=== PATIENT | female | born 1960 | race Caucasian/White ===

== ENCOUNTER → 2022-11-27 16:13 | Outpatient (CLI) | payer MEDICARE, SELFPAY ==
[2022-11-27 17:04] LABS: Basophils # 0.1 K/mm3 (0-0.2); Basophils % 0.5 % (0.1-2.0); Eosinophils # 0.2 K/mm3 (0.0-0.4); Eosinophils % 1.4 % (0.1-12.0); Hematocrit 37.8 % (37.0-47.0); Hemoglobin 12.1 g/dL (12.2-16.2); Lymphocytes # 3.3 K/mm3 (0.7-4.5); Lymphocytes % 28.6 % (10-50); Mean Corpuscular HGB Conc 32.2 g/dL (31.8-35.4); Mean Corpuscular Hemoglobin 27.2 pg (27.0-31.2); Mean Corpuscular Volume 84.5 fl (81-99); Mean Platelet Volume 9.2 fl (7.4-10.4); Monocytes # 0.8 K/mm3 (0.1-1.0); Monocytes % 6.6 % (1.7-9.3); Neutrophils # 7.1 K/mm3 (1.8-7.8); Neutrophils % 62.9 % (37.0-80.0); Platelet Count 544 K/mm3 (142-424); Red Blood Count 4.47 M/mm3 (4.20-5.40); Red Cell Distribution Width 15.8 % (11.5-17.5); White Blood Count 11.4 K/mm3 (4.8-10.8)
[2022-11-27 17:09] LABS: Alanine Aminotransferase 20 U/L (12-78); Albumin Level 4.2 g/dl (3.5-5.0); Albumin/Globulin Ratio 1.3 (1.1-1.8); Alkaline Phosphatase 85 U/L (38-126); Anion Gap 12.4 mEq/L (5-15); Aspartate Amino Transferase 26 U/L (14-36); Bilirubin,Total 0.7 mg/dl (0.2-1.3); Blood Urea Nitrogen 18 mg/dl (7-17); Calcium 9.3 mg/dl (8.4-10.2); Carbon Dioxide 31 mmol/L (22.0-30.0); Chloride 100 mmol/L (98-107); Chol/HDL Ratio 3.7 (1-3.5); Cholesterol 151 mg/dl (140-200); Estimated Glomerular Filt Rate 63 ml/min (>60); GFR (African American) 76 ML/MIN (>60); Globulin 3.3 g/dL (1.3-3.2); Glucose 83 mg/dl (74-100); HDL Cholesterol 41 mg/dl (40-60); Potassium 3.4 mmoL/L (3.5-5.1); Sodium 140 mmol/L (136-145); Total Protein,Serum 7.5 g/dl (6.3-8.2); Triglycerides 206 mg/dl (30-150); VLDL Cholesterol 41 mg/dL (0-40)
[2022-11-27 17:20] LABS: Direct LDL Cholesterol 74.92 mg/dL (100-129)
[2022-11-27 17:39] LABS: Thyroid Stimulating Hormone 2.08 uIU/mL (0.465-4.68)
[2022-11-27 18:14] LABS: Hemoglobin A1C 7.2 % (4.0-6.0)
== END ==
PROVIDERS: PCP Family Medicine; Visit Provider Family Medicine
DX: E11.9 Type 2 diabetes mellitus without complications (principal); E78.5 Hyperlipidemia, unspecified; I10 Essential (primary) hypertension; K21.9 Gastro-esophageal reflux disease without esophagitis; K51.90 Ulcerative colitis, unspecified, without complications; Z79.4 Long term (current) use of insulin
CPT/HCPCS: 80053; 80061; 83036; 84436; 84443; 85025

== ENCOUNTER → 2022-12-10 09:47 | Outpatient (CLI) | payer MEDICARE, SELFPAY ==
--- NOTE | 2022-12-10 09:53 | XR_ITS ---
FINAL REPORT CLINICAL HISTORY: left knee pain swelling COMPARISON: None FINDINGS: LEFT KNEE 3 views of the left knee were obtained. There is no acute fracture or dislocation. There is moderate medial compartment joint space narrowing. There is moderate subchondral sclerosis. Soft tissues are unremarkable. IMPRESSION: Moderate medial compartment joint space narrowing and moderate subchondral sclerosis. Reviewed, Interpreted and Dictated by Aldo Kauffman MD Transcribed by Kimberli Castorena Authenticated and [facility]
== END ==
PROVIDERS: PCP Family Medicine; Visit Provider Orthopaedic Surgery
DX: M25.562 Pain in left knee (principal); M25.462 Effusion, left knee
CPT/HCPCS: 73562

== ENCOUNTER → 2023-02-19 15:06 | Outpatient (CLI) | payer MEDICAID, SELFPAY ==
--- NOTE | 2023-02-19 15:06 | MM_ITS ---
PROCEDURE INFORMATION: Exam: MG Bilateral Screening 3D Mammography Exam date and time: 02/19/2023 2:57 PM Age: 62 years old Clinical indication: Screening mammogram TECHNIQUE: Imaging protocol: Bilateral Screening tomosynthesis and 2D mammography including computer-aided detection (CAD) when performed. COMPARISON: 1. MG DMDXUAVL DIG MAMM-DX UNI ADD VIEWS-LT 05/08/2015 1:49 PM 2. MG DMSB DIG MAMM-SCREEN JUSTIN 04/25/2015 10:38 AM 3. MG DMSB DIGITAL MAMM-SCREEN BILATERAL 10/14/2011 4:30 PM 4. MG DMSB DIGITAL MAMM-SCREEN BILATERAL 10/16/2010 4:45 PM FINDINGS: MAMMOGRAPHY: Breast composition: There are scattered areas of fibroglandular density. Mass: None. Architectural distortion: No new or suspicious architectural distortion. Calcifications: No new or suspicious calcifications are present Asymmetric density: No new or suspicious asymmetric density is present Skin thickening: None. Axillary adenopathy: None. IMPRESSION: No mammographic evidence of malignancy. Recommend annual screening mammography unless otherwise clinically indicated. ASSESSMENT: BI-RADS category 1: Negative
== END ==
PROVIDERS: PCP Family Medicine; Visit Provider Family Medicine
DX: Z12.31 Encounter for screening mammogram for malignant neoplasm of breast (principal)
CPT/HCPCS: 77063; 77067

== ENCOUNTER 2023-02-26 11:57 | Emergency (ER) | payer MEDICAID, SELFPAY ==
[2023-02-26] VITALS (7 sets, daily range): BP systolic 135–179; BP diastolic 79–100; PULSE 82–90; RESP 18; TEMP 36.7; O2SAT 92–96; BMI 35.4
--- NOTE | 2023-02-26 12:00 | ECG_ITS ---
APPROVED REPORT Exam: Resting ECG HR:84 bpm ECG Measurements Heart Rate 84 AXES WI 162 P 122 QRSd 94 QRS -6 QT 373 T 72 QTc 414 Conclusion SINUS RHYTHM NONSPECIFIC T-WAVE ABNORMALITY BORDERLINE ECG UNCONFIRMED REPORT Electronically signed by : Amish Nolan MD 02/26/2023 17:11:53
--- NOTE | 2023-02-26 12:15 | XR_ITS ---
FINAL REPORT CLINICAL HISTORY: Shortness of breath FINDINGS: PA and lateral views of the chest are obtained. There is no prior exam for comparison. The cardiac and mediastinal silhouettes are within normal limits. The lungs are clear. There is no pleural effusion, pneumothorax, or acute osseous abnormality. IMPRESSION: No radiographic evidence of acute cardiac or pulmonary disease. Reviewed, Interpreted and Dictated by Naye Reich MD Transcribed by Kimberli Castorena Authenticated and [facility]
[2023-02-26 12:34] LABS: Alanine Aminotransferase 37 U/L (12-78); Albumin Level 4.7 g/dl (3.5-5.0); Albumin/Globulin Ratio 1.3 (1.1-1.8); Alkaline Phosphatase 111 U/L (38-126); Aspartate Amino Transferase 36 U/L (14-36); Bilirubin,Total 0.4 mg/dl (0.2-1.3); Blood Urea Nitrogen 18 mg/dl (7-17); Calcium 9.5 mg/dl (8.4-10.2); Carbon Dioxide 26 mmol/L (22.0-30.0); Chloride 102 mmol/L (98-107); Creatinine Clearance Estimated 72 mL/min (50-200); Estimated Glomerular Filt Rate 45 ml/min (>60); GFR (African American) 55 ML/MIN (>60); Globulin 3.6 g/dL (1.3-3.2); Glucose 234 mg/dl (74-100); Sodium 139 mmol/L (136-145); Total Protein,Serum 8.3 g/dl (6.3-8.2)
--- NOTE | 2023-02-26 12:42 | HMH.EDGENADL ---
Discharge Plan Disposition Patient Disposition: Home, Self-Care Prescriptions Prescriptions: No Action vitamin E (dl, acetate) 180 mg (400 unit) capsule 180 mg PO BID terbinafine HCl 250 mg tablet 250 mg PO DAILY Qty: 30 4RF hydrocodone-acetaminophen 7.5-325 mg tablet 1 tab PO Q6H PRN (Reason: pain) Qty: 30 0RF potassium chloride 10 mEq capsule, extended release 10 meq PO DAILY Qty: 30 5RF albuterol sulfate 90 mcg/actuation HFA aerosol inhaler 1 inh inhalation QID Qty: 6.7 3RF metformin 500 mg tablet extended release 24 hr 500 mg PO BID 30 Days Qty: 60 2RF lisinopril 20 mg tablet 20 mg PO DAILY 30 Days Qty: 30 2RF furosemide 40 mg tablet 40 mg PO DAILY 30 Days Qty: 30 2RF atorvastatin 40 mg tablet 40 mg PO DAILY 30 Days Qty: 30 2RF pantoprazole 40 mg tablet,delayed release (DR/EC) 40 mg PO DAILY 30 Days Qty: 30 2RF lisinopril 10 mg tablet 10 mg PO DAILY 30 Days Qty: 30 2RF Rx Instructions: This will be in addition to the 20mg she is already on. Levemir FlexPen 100 unit/mL (3 mL) insulin pen 52 unit SQ HS 30 Days Qty: 15.6 2RF Referrals Follow up/Referrals: Rigo Johnson MD [Staff Physician] - See instructions Clinical Impressions Clinical Impression: Dyspnea, EVELINE (obstructive sleep apnea) Discharge ED Provider: Zuleima Paulson General Adult HPI General Chief complaint: Shortness of Breath/Dyspnea Stated complaint: shortness of breath Time Seen by Provider: 02/26/23 12:35 Mode of Arrival: EMS Source of Information: Patient and EMS Limitations: No Limitations Description of Symptoms (Recalled from ER Triage Doc. by RN): c/o soa since this morning upon waking. Pt states she feels full , like she is bloated and needs to get some fluid off. PT karishma any chest pain at this time. Pt took a lasix 40 mg pill at home hoping this would improver her symptoms, this did not, she went to the pcp for futher evaluation. History of Present Illness HPI narrative: Patient is a 62-year-old female with a history of hypertension diabetes hyperlipidemia presenting today with dyspnea. She states that she feels full. She does not have increased lower extremity edema or increased orthopnea she sleeps on several pillows at baseline. She does states she feels a little bit worse with lying flat. She has a known history of sleep apnea uses a CPAP at night. 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 No fevers or chills cough or any other symptoms. She has had no chest pain specifically or any chest discomfort. Related Data Home Medications Medication Instructions Recorded Confirmed vitamin E (dl, acetate) 180 mg 180 mg PO BID 11/26/22 02/26/23 (400 unit) capsule Previous Rx's Medication Instructions Recorded terbinafine HCl 250 mg tablet 250 mg PO DAILY foot fungus #30 11/26/22 tabs atorvastatin 40 mg tablet 40 mg PO DAILY 30 days #30 tabs 12/09/22 furosemide 40 mg tablet 40 mg PO DAILY 30 days #30 tabs 12/09/22 lisinopril 20 mg tablet 20 mg PO DAILY HTN 30 days #30 tabs 12/09/22 metformin 500 mg tablet,extended 500 mg PO BID 30 days #60 tabs 12/09/22 release 24 hr pantoprazole 40 mg tablet,delayed 40 mg PO DAILY 30 days #30 tabs 12/09/22 release insulin detemir U-100 100 unit/mL 52 unit (0.52 mL) SQ HS Diabetes 01/26/23 (3 mL) subcutaneous pen (Levemir 30 days #15.6 mL FlexPen) lisinopril 10 mg tablet 10 mg PO DAILY 30 days #30 tabs 01/26/23 hydrocodone 7.5 mg-acetaminophen 1 tab PO Q6H PRN pain #30 tabs 02/15/23 325 mg tablet potassium chloride 10 mEq 10 meq PO DAILY #30 caps 02/15/23 capsule,extended release albuterol sulfate 90 mcg/actuation 1 inh inhalation QID #6.7 grams 02/26/23 aerosol inhaler Allergies Allergy/AdvReac Type Severity Reaction Status Date / Time amlodipine [From [facility]] Allergy Severe S-SWELLS-OR Verifi
[2023-02-26 12:45] LABS: NT Pro Brain Natriuretic Pep. 91.8 pg/mL (0-125)
[2023-02-26 12:46] LABS: Troponin I < 0.01 ng/ml (0.00-0.034)
--- NOTE | 2023-02-26 13:06 | PC.NURSE ---
[facility] CALLED FOR AN UPDATE ON PT
--- NOTE | 2023-02-26 13:25 | PC.NURSE ---
ROUNDED ON PT NOTHING NEEDED AT THIS TIME, CALL LIGHT AT BS
[2023-02-26 13:57] LABS: D-Dimer 0.65 ug/mL (0.0-0.5)
[2023-02-26 13:58] LABS: Hemoglobin 12.2 g/dL (12.2-16.2); Mean Corpuscular HGB Conc 31.3 g/dL (31.8-35.4); Mean Corpuscular Hemoglobin 25.6 pg (27.0-31.2); Mean Corpuscular Volume 81.8 fl (81-99); Red Blood Count 4.77 M/mm3 (4.20-5.40); White Blood Count 12.7 K/mm3 (4.8-10.8)
[2023-02-26 13:59] LABS: Basophils # 0.1 K/mm3 (0-0.2); Basophils % 0.4 % (0.1-2.0); Eosinophils # 0.2 K/mm3 (0.0-0.4); Eosinophils % 1.2 % (0.1-12.0); Lymphocytes # 2.9 K/mm3 (0.7-4.5); Lymphocytes % 22.6 % (10-50); Mean Platelet Volume 10.6 fl (7.4-10.4); Monocytes # 0.7 K/mm3 (0.1-1.0); Monocytes % 5.6 % (1.7-9.3); Neutrophils # 8.9 K/mm3 (1.8-7.8); Platelet Count 513 K/mm3 (142-424); Red Cell Distribution Width 15.2 % (11.5-17.5)
--- NOTE | 2023-02-26 14:40 | PC.NURSE ---
ROUNDED ON PT NOTHING NEEDED AT THIS TIME, VISITOR AT BS
[2023-02-26 16:26] LABS: Troponin I < 0.01 ng/ml (0.00-0.034)
== END 2023-02-26 15:48 | disposition home or self-care (01) ==
PROVIDERS: Emergency Provider Student in an Organized Health Care Education/Training Program
DX: R06.02 Shortness of breath (principal); G47.33 Obstructive sleep apnea (adult) (pediatric); I10 Essential (primary) hypertension; E78.5 Hyperlipidemia, unspecified; E11.9 Type 2 diabetes mellitus without complications; K51.90 Ulcerative colitis, unspecified, without complications; Z87.891 Personal history of nicotine dependence
CPT/HCPCS: 36415; 71046; 80053; 83880; 84484; 85025; 85378; 93005; 99285

== ENCOUNTER 2023-08-10 10:17 | Outpatient (CLI) | payer MEDICARE, MEDICAID, SELFPAY | END 2023-08-10 23:59 | LOC: LAB.DROPOF 08-11 10:18 | PROVIDERS: PCP Nurse Practitioner Family; Visit Provider Nurse Practitioner Family | DX: J02.9 Acute pharyngitis, unspecified (principal); Z87.891 Personal history of nicotine dependence | CPT/HCPCS: 87070 ==

== ENCOUNTER 2023-09-21 19:34 | Outpatient (CLI) | payer MEDICARE, MEDICAID, SELFPAY ==
[2023-09-21 17:07] LABS: Hemoglobin A1C 8.1 % (4.0-6.0)
== END 2023-09-21 23:59 ==
LOC: LAB.DROPOF 19:35
PROVIDERS: PCP Family Medicine; Visit Provider Family Medicine
DX: E11.9 Type 2 diabetes mellitus without complications (principal)
CPT/HCPCS: 83036

== ENCOUNTER 2024-02-28 10:43 | Outpatient (CLI) | payer MEDICARE, MEDICAID, SELFPAY ==
[2024-02-28 16:16] LABS: Basophils # 0.1 K/mm3 (0-0.2); Basophils % 0.8 % (0.1-2.0); Eosinophils # 0.2 K/mm3 (0.0-0.4); Eosinophils % 1.7 % (0.1-12.0); Hematocrit 36.4 % (37.0-47.0); Hemoglobin 11.9 g/dL (12.2-16.2); Lymphocytes % 32.8 % (10-50); Mean Corpuscular HGB Conc 32.7 g/dL (31.8-35.4); Mean Corpuscular Hemoglobin 27.5 pg (27.0-31.2); Mean Corpuscular Volume 84.3 fl (81-99); Mean Platelet Volume 9.3 fl (7.4-10.4); Monocytes # 0.5 K/mm3 (0.1-1.0); Monocytes % 5.7 % (1.7-9.3); Neutrophils # 5.5 K/mm3 (1.8-7.8); Platelet Count 519 K/mm3 (142-424); Red Blood Count 4.31 M/mm3 (4.20-5.40); Red Cell Distribution Width 16.1 % (11.5-17.5); White Blood Count 9.3 K/mm3 (4.8-10.8)
[2024-02-28 16:21] LABS: Alanine Aminotransferase 26 U/L (12-78); Albumin Level 4.1 g/dl (3.5-5.0); Albumin/Globulin Ratio 1.2 (1.1-1.8); Alkaline Phosphatase 96 U/L (38-126); Anion Gap 12.5 mEq/L (5-15); Aspartate Amino Transferase 27 U/L (14-36); Bilirubin,Total 0.5 mg/dl (0.2-1.3); Blood Urea Nitrogen 37 mg/dl (7-17); Calcium 10.4 mg/dl (8.4-10.2); Carbon Dioxide 29 mmol/L (22.0-30.0); Chloride 102 mmol/L (98-107); Chol/HDL Ratio 2.6 (1-3.5); Cholesterol 138 mg/dl (140-200); Estimated Glomerular Filt Rate 41 ml/min (>60); GFR (African American) 50 ML/MIN (>60); Globulin 3.4 g/dL (1.3-3.2); Glucose 90 mg/dl (74-100); HDL Cholesterol 53 mg/dl (40-60); Potassium 4.5 mmoL/L (3.5-5.1); Sodium 139 mmol/L (136-145); Total Protein,Serum 7.5 g/dl (6.3-8.2); Triglycerides 110 mg/dl (30-150); VLDL Cholesterol 22 mg/dL (0-40)
[2024-02-28 16:31] LABS: Direct LDL Cholesterol 54.18 mg/dL (100-129)
[2024-02-28 17:04] LABS: Hemoglobin A1C 7.4 % (4.0-6.0)
== END 2024-02-28 23:59 | disposition home or self-care (01) ==
LOC: LAB.DROPOF 02-29 10:44
PROVIDERS: PCP Family Medicine; Visit Provider Family Medicine
DX: E11.9 Type 2 diabetes mellitus without complications (principal); E78.5 Hyperlipidemia, unspecified; I10 Essential (primary) hypertension
CPT/HCPCS: 80050; 80053; 80061; 83036; 84443; 85025

== ENCOUNTER 2024-02-29 12:48 | Outpatient (CLI) | payer MEDICARE, MEDICAID, SELFPAY ==
--- NOTE | 2024-02-29 12:49 | MM_ITS ---
PROCEDURE INFORMATION: Exam: MG Bilateral Screening 3D Mammography Exam date and time: 02/29/2024 12:45 PM Age: 63 years old Clinical indication: Screening mammogram TECHNIQUE: Imaging protocol: Bilateral Screening tomosynthesis and 2D mammography including computer-aided detection (CAD) when performed. COMPARISON: 1. MG MM DIG SCREENING MAMM BI W/CAD 02/19/2023 2:57 PM 2. MG DMDXUAVL DIG MAMM-DX UNI ADD VIEWS-LT 05/08/2015 1:49 PM 3. MG DMSB DIG MAMM-SCREEN JUSTIN 04/25/2015 10:38 AM 4. MG DMSB DIGITAL MAMM-SCREEN BILATERAL 10/14/2011 4:30 PM FINDINGS: MAMMOGRAPHY: Breast composition: There are scattered areas of fibroglandular density. Mass: None. Architectural distortion: No new or suspicious architectural distortion. Calcifications: No new or suspicious calcifications are present Asymmetric density: No new or suspicious asymmetric density is present Skin thickening: None. Axillary adenopathy: None. IMPRESSION: No mammographic evidence of malignancy. Recommend annual screening mammography unless otherwise clinically indicated. ASSESSMENT: BI-RADS category 1: Negative.
== END 2024-02-29 23:59 | disposition home or self-care (01) ==
LOC: RAD 12:49
PROVIDERS: PCP Family Medicine; Visit Provider Family Medicine
DX: Z12.31 Encounter for screening mammogram for malignant neoplasm of breast (principal)
CPT/HCPCS: 77063; 77067

== ENCOUNTER 2024-04-27 13:00 | Outpatient (RCR) | payer MEDICARE, MEDICAID, SELFPAY | END 2024-05-09 11:29 | disposition home or self-care (01) | LOC: PT 13:00 | PROVIDERS: Visit Provider Orthopaedic Surgery | DX: M17.12 Unilateral primary osteoarthritis, left knee (principal) | CPT/HCPCS: 97014; 97110; 97116; 97140; 97163; 97530; G0283 ==

== ENCOUNTER 2024-06-21 08:45 | Outpatient (CLI) | payer MEDICARE, MEDICAID, SELFPAY ==
--- NOTE | 2024-06-21 08:50 | XR_ITS ---
FINAL REPORT CLINICAL HISTORY: left shoulder pain COMPARISON: None FINDINGS: LEFT SHOULDER 3 views demonstrate no acute fracture or dislocation. There there is mild degenerative change. The visualized bony structures are well aligned. No soft tissue abnormality is seen. IMPRESSION: Mild degenerative change without acute process. Reviewed, Interpreted and Dictated by Carlito Castañeda III, MD Transcribed by Kimi Roque Authenticated and [facility]
== END 2024-06-21 23:59 | disposition home or self-care (01) ==
LOC: RAD 08:46
PROVIDERS: PCP Family Medicine; Visit Provider Physician Assistant
DX: M25.512 Pain in left shoulder (principal)
CPT/HCPCS: 73030

== ENCOUNTER 2024-07-20 11:11 | Outpatient (CLI) | payer MEDICARE, MEDICAID, SELFPAY ==
[2024-07-20 17:48] LABS: Creatinine,Urine Random 15 mg/dL (Not Estab.); Microalbumin < 6.000 mg/L (0-16.7)
== END 2024-07-20 23:59 | disposition home or self-care (01) ==
LOC: LAB.DROPOF 07-21 15:16
PROVIDERS: PCP Family Medicine; Visit Provider Family Medicine
DX: E11.9 Type 2 diabetes mellitus without complications (principal)
CPT/HCPCS: 82043; 82570

== ENCOUNTER 2024-08-24 07:55 | Outpatient (CLI) | payer MEDICARE, MEDICAID, SELFPAY ==
--- NOTE | 2024-08-24 07:56 | MR_ITS ---
FINAL REPORT TECHNIQUE: Multiplanar MR without contrast CLINICAL HISTORY: left shoulder pain INJURY 06/12/24 UNABLE TO REACH BEHIND BACK FEELS LIKE ITS PULLING COMPARISON: None FINDINGS: Marrow signal: Cylindrical signal abnormalities of the humeral head considered postoperative. No evidence of bone contusion or fracture. Glenohumeral joint: Moderate effusion. Moderate degenerative changes. Mild superior subluxation. AC joint: Moderate arthropathy. Fluid in the subacromial bursa. Rotator cuff: Severe rotator cuff disease with complete tears of the infraspinatus, supraspinatus, and subscapularis tendons with marked retraction. Muscle atrophy is particularly advanced in the infraspinatus and supraspinatus tendon suggesting a chronic process. Labrum: No evidence of labral tear. Biceps tendon: Nonvisualized, compatible with complete tear. IMPRESSION: Severe rotator cuff disease. Complete tear long head biceps tendon. Reviewed, Interpreted and Dictated by Jonatan Drake MD Transcribed by Kimberli Castorena Authenticated and [facility]
== END 2024-08-24 23:59 | disposition home or self-care (01) ==
LOC: RAD 07:56
PROVIDERS: PCP Family Medicine; Visit Provider Orthopaedic Surgery
DX: S40.012A Contusion of left shoulder, initial encounter (principal)
CPT/HCPCS: 73221

== ENCOUNTER 2024-09-01 14:26 | Inpatient (IN) | payer MEDICARE, MEDICAID, SELFPAY ==
[2024-09-01] VITALS (18 sets, daily range): BP systolic 109–182; BP diastolic 61–103; PULSE 65–101; RESP 12–20; TEMP 36.4–36.8; O2SAT 90–99; BMI 33.4; BMI 33.5
--- NOTE | 2024-09-01 14:30 | ED_ITS ---
<Statement entered by Elizabeth Hudson DO - 09/01/24 22:55> I was consulted by the DANIELA, and we discussed the complexity of the problems being addressed. I approved the treatment and management plan for this patient's care in the emergency department, thus performing a substantive portion of the medical decision making. Elizabeth Hudson DO I independently interpreted EKG at 1525 and noted sinus bradycardia with a ventricular rate of [address] changes concerning for ischemia. Normal intervals Discharge Plan Disposition Patient Disposition: Admitted Condition: Serious Clinical Impressions Clinical Impression: Acute pancreatitis Qualifiers: Pancreatitis type: other Acute pancreatitis complication: unspecified Qualified Code(s): K85.80 - Other acute pancreatitis without necrosis or infection Discharge ED Provider: Elizabeth Hudson General Adult HPI General Chief complaint: Abdominal Pain Stated complaint: ABDOMINAL Time Seen by Provider: 09/01/24 14:29 History of Present Illness HPI narrative: Patient is a 64-year-old female presents for evaluation of epigastric abdominal pain. Patient gives a history of 24 hours of worsening epigastric abdominal pain. Patient states that the pain does not radiate except into her back. She has nausea and is intolerant of oral intake. She reports however she has had a bowel movement and passing flatus. Patient denies fever chest pain shortness of breath hemoptysis hematochezia melena hematemesis hematuria. Patient also relates that she recently started Mounjaro about a month and a half ago. Patient also states that several years ago she was on Ozempic and had a bout of acute pancreatitis in which she was critically ill and hospitalized for very long time. Inexplicably her PCP started her on Mounjaro according to the patient knowing that she had this previous episode. Related Data Home Medications ?Medication ?Instructions ?Recorded ?Confirmed insulin glargine U-300 conc 300 See Rx Instructions .Route .COMPLEX 07/20/24 09/01/24 unit/mL (3 mL) subcutaneous pen (Toujeo Max U-300 SoloStar) Previous Rx's ?Medication ?Instructions ?Recorded terazosin 1 mg capsule 2 mg (2 x 1 mg) PO DAILY blood 12/18/23 pressure 90 days #180 caps tirzepatide 2.5 mg/0.5 mL See Rx Instructions .Route 05/08/24 subcutaneous pen injector .COMPLEX #12 ea (Mounjaro) albuterol sulfate 90 mcg/actuation 1 inh inhalation QID #6.7 grams 06/22/24 aerosol inhaler atorvastatin 40 mg tablet See Rx Instructions .Route 07/05/24 .COMPLEX #90 tabs furosemide 40 mg tablet See Rx Instructions .Route 07/05/24 .COMPLEX #90 tabs lisinopril 40 mg tablet See Rx Instructions .Route 07/05/24 .COMPLEX #90 tabs pantoprazole 40 mg tablet,delayed See Rx Instructions .Route 07/05/24 release .COMPLEX #90 tabs potassium chloride 10 mEq See Rx Instructions .Route 07/05/24 capsule,extended release .COMPLEX #90 caps codeine 10 mg-guaifenesin 100 mg/5 10 ml PO Q4-6H PRN cough #120 mL 08/23/24 mL oral liquid Allergies Allergy/AdvReac Type Severity Reaction Status Date / Time amlodipine (From NORVASC) Allergy Severe S-SWELLS-OR Verified 09/01/24 14:56 AL/THROAT semaglutide (From Ozempic) AdvReac renal Verified 09/01/24 14:56 failure jardiance AdvReac yeast Uncoded 09/01/24 13:25 infection PFSH PFS Disclaimer: The information contained in this section may have been updated after the patient was seen, as this information can be updated by other users. Medical History Osteoarthritis of left knee Ulcerative colitis EVELINE (obstructive sleep apnea) Edema Hypertension Hyperlipidemia Diabetes mellitus Surgical History History of colonoscopy H/O removal of cyst H/O shoulder surgery History of hysterectomy Family History Sister Cancer Diabetes Hypertension Brother Cancer Diabetes Father Cancer Hypertension Mother Hypertension Social History Smoking Status: Never smoker years smoked: 3 how long ago did patient quit smoking: >20 years alcohol intake: never substance use type: denies use current occupational status: retired Travel in the last 8 weeks: None household members: none housing: apartment Other Medical History Have you received the Pneumonia Vaccine: Yes ROS Obtained: Yes Systems reviewed as appropriate & no additional complaints except as documented Physical Exam General General appearance: alert and in no apparent distress Respiratory Respiratory exam: Present normal lung sounds bilaterally Cardiovascular Cardiovascular exam: Present regular rate Neurological Exam Neurological exam: Present alert and oriented X3 Skin Skin exam: Present dry Medical Decision Making Medical Records Medical records reviewed: Yes I reviewed the patient's medical records. Screening: Per USPSTF and CDC recommendations, given the prevalence of disease in our region, it is our hospital?s policy to screen for HIV and viral Hepatitis for all patients aged 18 and over and those with ongoing risk factors. Ayaz Inquiry Pt receiving controlled substance: No Vital Signs: 09/01/24 14:30 09/01/24 14:35 09/01/24 14:40 Temperature Temperature Source Pulse Rate 97 H 97 H 100 H Pulse Rate [Left] Respiratory Rate Blood Pressure 126/61 109/72 L 116/72 Blood Pressure [Right Arm] Blood Pressure Mean Blood Pressure Mean [Right Arm] Blood Pressure Source [Right Arm] Blood Pressure Position [Right Arm] 02 Sat by Pulse Oximetry 98 99 95 Oxygen Delivery Method 09/01/24 14:46 09/01/24 15:30 09/01/24 15:35 Temperature 98.3 F Temperature Source Oral Pulse Rate 80 80 Pulse Rate [Left] 95 H Respiratory Rate 16 12 15 Blood Pressure 118/74 114/74 Blood Pressure [Right Arm] 126/61 Blood Pressure Mean Blood Pressure Mean [Right Arm] 82 Blood Pressure Source [Right Arm] Automatic Cuff Blood Pressure Position [Right Arm] Sitting 02 Sat by Pulse Oximetry 98 96 92 L Oxygen Delivery Method Room Air Room Air Room Air 09/01/24 15:40 09/01/24 15:45 09/01/24 15:50 Temperature Temperature Source Pulse Rate 78 83 82 Pulse Rate [Left] Respiratory Rate 14 14 14 Blood Pressure 115/71 120/68 115/74 Blood Pressure [Right Arm] Blood Pressure Mean Blood Pressure Mean [Right Arm] Blood Pressure Source [Right Arm] Blood Pressure Position [Right Arm] 02 Sat by Pulse Oximetry 93 L 94 L 96 Oxygen Delivery Method Room Air Room Air Room Air 09/01/24 15:55 09/01/24 16:00 09/01/24 16:21 Temperature Temperature Source Pulse Rate 81 101 H 78 Pulse Rate [Left] Respiratory Rate 12 20 Blood Pressure 116/71 121/77 168/91 H Blood Pressure [Right Arm] Blood Pressure Mean Blood Pressure Mean [Right Arm] Blood Pressure Source [Right Arm] Blood Pressure Position [Right Arm] 02 Sat by Pulse Oximetry 95 92 L 99 Oxygen Delivery Method Room Air Room Air Room Air 09/01/24 16:30 09/01/24 16:34 09/01/24 16:35 Temperature Temperature Source Pulse Rate 79 76 79 Pulse Rate [Left] Respiratory Rate Blood Pressure 160/91 H 182/102 H 180/103 H Blood Pressure [Right Arm] Blood Pressure Mean 116 Blood Pressure Mean [Right Arm] Blood Pressure Source [Right Arm] Blood Pressure Position [Right Arm] 02 Sat by Pulse Oximetry 90 L 96 97 Oxygen Delivery Method Room Air Room Air Room Air 09/01/24 17:26 09/01/24 17:41 Temperature 98.2 F Temperature Source Oral Pulse Rate 77 Pulse Rate [Left] 67 Respiratory Rate 16 Blood Pressure 170/93 H Blood Pressure [Right Arm] 170/93 H Blood Pressure Mean Blood Pressure Mean [Right Arm] 118 Blood Pressure Source [Right Arm] Automatic Cuff Blood Pressure Position [Right Arm] Supine 02 Sat by Pulse Oximetry 96 Oxygen Delivery Method Room Air Lab Data Lab results reviewed: Yes I reviewed the patient's lab results. Lab Results 09/01/24 14:41: WBC 17.3 H, RBC 4.83, Hgb 12.0 L, Hct 38.5, MCV 79.7 L, MCH 24.8 L, MCHC 31.2 L, RDW 16.7, Plt Count 512 H, MPV 9.0, Neut % (Auto) 77.3, Lymph % (Auto) 13.8, Hood % (Auto) 8.2, Eos % (Auto) 0.1, Baso % (Auto) 0.3, Neut # (Auto) 13.4 H, Lymph # (Auto) 2.4, Hood # (Auto) 1.4 H, Eos # (Auto) 0.0, Baso # (Auto) 0.1, Total Counted 100, Neutrophils % (Manual) 72, Lymphocytes % (Manual) 15, Monocytes % (Manual) 12 H, Basophils % (Manual) 1.0, Platelet Estimate Slight increase, RBC Morphology Normal, Sodium 135 L, Potassium 4.5, Chloride 100, Carbon Dioxide 21 L, Anion Gap 18.5 H, BUN 34 H, Creatinine 1.70 H, Estimated Creat Clear 47, Estimated GFR 30 L, Est GFR ( Amer) 36 L, G lucose 148 H, Lactate 1.1, Calcium 9.5, Magnesium 1.6, Total Bilirubin 0.8, AST 28, ALT 24, Alkaline Phosphatase 159 H, Lactate Dehydrogenase 211 L, C-Reactive Protein 12.4 H, NT-Pro-B Natriuret Pep 170 H, Total Protein 8.7 H, Albumin 4.9, Globulin 3.8 H, Albumin/Globulin Ratio 1.3, Lipase 08213 H, Procalcitonin 0.112, HCV Ab SANA w/Rflx PCR Qn Negative, HIV Ag/Ab Combo Qual Negative 09/01/24 14:49: Urine Color Yellow, Urine Appearance Clear, Urine pH 6.5, Ur Specific [place] 1.010, Urine Protein Negative, Urine Glucose (UA) Negative, Urine Ketones Negative, Urine Blood Negative, Urine Nitrate Negative, Urine Bilirubin Negative, Urine Urobilinogen 0.2, Ur Leukocyte Esterase Negative, Urine RBC None, Urine WBC 3-5, Ur Squamous Epith Cells 3-5, Urine Bacteria Trace 09/01/24 14:41 09/01/24 14:41 Orders (Tests/Meds): ED MEDICATIONS Generic Name Dose Route Start Last Admin Trade Name Freq PRN Reason Stop Dose Admin Albuterol Sulfate 1 puff 09/01/24 21:00 09/01/24 21:16 Albuterol-Hfa 90mcg/Puff Inhaler 8gm IH 10/01/24 20:59 1 puff QID TAMMY Administration Enoxaparin Sodium 40 mg 09/02/24 09:00 Enoxaparin 40mg/0.4ml Syringe SUBCUT 10/02/24 08:59 DAILY TAMMY Lactated Ringer's 1,000 mls @ 100 mls/hr 09/01/24 17:00 09/01/24 21:36 Lactated Ringer's 1000 Ml Bag IV 10/01/24 16:59 100 mls/hr .Q10H TAMMY Administration Insulin Glargine 30 unit 09/01/24 21:00 09/01/24 21:35 Insulin Glargine 100 Units/Ml 3ml Flexpen SUBCUT 10/01/24 20:59 30 unit HS TAMMY Administration Insulin Human Lispro 0 unit 09/01/24 21:00 09/01/24 21:13 Humalog 100 Units/Ml 10ml Vial (Ssi) SUBCUT 10/01/24 20:59 Not Given ACHS TAMMY Protocol Ketorolac Tromethamine 30 mg 09/01/24 19:36 Ketorolac 30mg/Ml Vial IV 09/06/24 19:35 Q6HP PRN Moderate Pain (4-6) Miscellaneous 1 unit 09/01/24 19:52 Aerochamber/Optihaler MC 09/01/24 19:53 ONCE ONE Ondansetron HCl 4 mg 09/01/24 16:50 Ondansetron 4mg/2ml Vial IV 10/01/24 16:49 Q8HP PRN Nausea Oxycodone/Acetaminophen 1 each 09/01/24 16:50 Oxycodone 5mg W/Apap 325mg Tablet PO 10/01/24 16:49 Q4HP PRN Moderate to Severe Pain (4-10) Pantoprazole Sodium 40 mg 09/01/24 21:00 09/01/24 21:36 Pantoprazole 40mg Tablet PO 10/01/24 20:59 40 mg HS TAMMY Administration Terazosin HCl 2 mg 09/02/24 09:00 Terazosin 1mg Capsule PO 10/02/24 08:59 DAILY TAMMY Discontinued Medications Generic Name Dose Route Start Last Admin Trade Name Freq PRN Reason Stop Dose Admin Acetaminophen 1,000 mg 09/01/24 14:33 09/01/24 14:44 Acetaminophen 1,000mg/100ml Vial IV 09/01/24 14:34 1,000 mg ONCE ONE Administration Belladonna Alkaloids 60 ml 09/01/24 14:33 09/01/24 14:44 Belladonna Alkaloids 60 Ml Ml PO 09/01/24 14:34 60 ml ONCE ONE Administration Hydromorphone HCl 0.5 mg 09/01/24 16:59 09/01/24 17:07 Hydromorphone 2mg/Ml Syringe IV 09/01/24 17:00 0.5 mg ONCE ONE Administration Sodium Chloride 1,000 mls @ 999 mls/hr 09/01/24 15:15 09/01/24 16:02 Sod Chlor 0.9% 1000ml Bag IV 09/01/24 16:15 999 mls/hr .Q1H1M ONE Administration Iopamidol 75 ml 09/01/24 16:11 09/01/24 16:20 Iopamidol-370 (76%);100ml Bottle IV 09/01/24 16:12 75 ml ONCE ONE Administration Ketorolac Tromethamine 15 mg 09/01/24 14:33 09/01/24 14:44 Ketorolac 30mg/Ml Vial IV 09/01/24 14:34 15 mg ONCE ONE Administration Ondansetron HCl 4 mg 09/01/24 14:33 09/01/24 14:44 Ondansetron 4mg/2ml Vial IV 09/01/24 14:34 4 mg ONCE ONE Administration Sodium Chloride 10 ml 09/01/24 16:11 09/01/24 16:20 Sodium Chloride 0.9% 10ml Syr (Rad Only) IV 09/01/24 16:12 10 ml ONCE ONE Administration ORDERS Category Date Time Status CT abdomen pelvis w con Stat Cat Scan 09/01/24 14:33 Completed Chest XR 2 view (NOT portable) [XR chest 2V] Stat Exams 09/01/24 14:34 Completed BNP [NT Pro Brain Natriuretic Pep.] Stat Lab 09/01/24 14:41 Completed CBC w/Auto Diff [Complete Blood Count Auto Diff] Stat Lab 09/01/24 14:41 Completed CMP [Comprehensive Metabolic Panel] Stat Lab 09/01/24 14:41 Completed CRP [C-Reactive Protein] Stat Lab 09/01/24 14:41 Completed Complete Blood Count Auto Diff AMLAB Lab 09/02/24 06:00 Ordered Comprehensive Metabolic Panel AMLAB Lab 09/02/24 06:00 Ordered HIV Combo Stat Lab 09/01/24 14:41 Completed Hepatitis C Ab Qual. W/ RFX Stat Lab 09/01/24 14:41 Completed LDH [Lactate Dehydrogenase] Stat Lab 09/01/24 14:41 Completed Lactic Acid Stat Lab 09/01/24 14:41 Completed Lipase Stat Lab 09/01/24 14:41 Completed Lipid Panel AMLAB Lab 09/02/24 06:00 Ordered Magnesium AMLAB Lab 09/02/24 06:00 Ordered Magnesium Stat Lab 09/01/24 14:41 Completed Procalcitonin Stat Lab 09/01/24 14:41 Completed UA [Urinalysis and Microscopic] Stat Lab 09/01/24 14:49 Completed Blood Culture Stat Micro 09/01/24 16:05 Received Tissue Perfus/Sepsis Re-Eval Sepsis Re-Evaluation Performed: Yes Date Performed: 09/01/24 Time Performed: 18:00 Medical Decision Narrative: In summary patient is a 64-year-old female who presents to the emergency department for evaluation of epigastric abdominal pain. Patient is hemodynamically stable initially at a blood pressure 126/61 pulse 97 respiratory rate 16 O2 sats 98% on room air normal sinus rhythm on the bedside monitor upon arrival, febrile at 98.3. Physical exam is remarkable for exquisite epigastric tenderness to palpation without rebound or guarding or rigidity. Bowel sounds quiescent.. Differential diagnosis includes acute pancreatitis versus gastroenteritis versus ulcer versus cholecystitis versus bowel obstruction etc. Initial workup will be conducted with hematologic labs urinalysis CT scan abdomen pelvis. Initial interventions include sepsis fluid bolus Toradol Tylenol Zofran. Initial workup reviewed by me and patient has a white count of 17.3 with a normal H&H with an absolute neutrophil count of 13.4 is likely a leukemoid instead of infectious given the acute nature of pancreatitis, and has hyponatremia at 135 gap of 18.5 BUN of 34 creatinine 1.7 GFR of 30 alk phos of 159 LDH of 211 CRP of 12 NT proBNP of 170 and her lipase is 16,767 with a procalcitonin of 0.112 her urinalysis is bland. My informal interpretation of CT scan abdomen pelvis shows stranding around the pancreas but no definitive fluid collection no other acute processes.,. Given this I had an interactive discussion with hospital medicine regarding patient SEXTON and findings and patient management and she will be admitted for further evaluation and care Critical Care Critical Care Time Critical Care Time: Yes Attestation: On 09/01/24, the high probability of a clinically significant, sudden or life threatening deterioration of the following system(s) required my full and direct attention, intervention and personal management. The time I documented below is in addition to time spent performing reported procedures but includes the following listed in this critical care notation. Total Time Total Critical Care Time: 35
--- NOTE | 2024-09-01 14:33 | CT_ITS ---
PROCEDURE INFORMATION: Exam: CT Abdomen And Pelvis With Contrast Exam date and time: 09/01/2024 4:11 PM Age: 64 years old Clinical indication: Abdominal pain; Additional info: Right upper quadrant abdominal pain TECHNIQUE: Imaging protocol: Computed tomography of the abdomen and pelvis with contrast. Radiation optimization: All CT scans at this facility use at least one of these dose optimization techniques: automated exposure control; mA and/or kV adjustment per patient size (includes targeted exams where dose is matched to clinical indication); or iterative reconstruction. Contrast material: ISOVUE; Contrast volume: 75 ml; Contrast route: IV; COMPARISON: CR XR CHEST 2V 09/01/2024 3:56 PM FINDINGS: Diaphragm: Small hiatal hernia. Liver: Liver is enlarged measuring 18 cm. Mild hepatic steatosis suggested. Gallbladder and biliary ducts: Normal. No calcified stones. No ductal dilation. Pancreas: Very subtle peripancreatic fat stranding at the level of the pancreatic body and tail. Spleen: Multiple (> 5) hypodense/fluid density splenic lesions which favor cysts. Consider nonemergent follow-up ultrasound to ascertain. Splenic calcified granulomas are benign. Adrenal glands: Normal. No mass. Kidneys and ureters: Bilateral renal cortical thinning and small kidneys (right 8.8 cm and left 8.3 cm), raising concern for chronic kidney disease. Bilateral hypodense renal lesions are too small to characterize but likely benign cysts.Nonemergent ultrasound follow-up is recommended. No hydronephrosis, hydroureter, or nephrolithiasis. Stomach and bowel: Moderate constipation. Gastric wall thickening and mucosal hyperenhancement. No bowel obstruction. Appendix: Appendix is not seen. There is no inflammation in the right lower quadrant. Intraperitoneal space: Unremarkable. No free air. No significant fluid collection. Vasculature: Minimal atherosclerosis. Lymph nodes: Slightly prominent periportal lymph nodes (up to 1.2 cm). Urinary bladder: Bladder is decompressed but unremarkable. Reproductive: Hysterectomy. Bones/joints: Vertebral body hemangiomas at T12, L1, and L4. No aggressive bone lesions. Soft tissues: Left lower quadrant subcutaneous air foci, likely related to recent injections. Skin thickening and chronic tiny subcutaneous granulomas in the right lower quadrant ventral abdominal wall, likely sequela of chronic injections. IMPRESSION: 1. Slightly prominent periportal lymph nodes (up to 1.2 cm). Presumably reactive. 2. Very subtle peripancreatic fat stranding at the level of the pancreatic body and tail. Questions mild pancreatitis versus volume averaging artifact. Correlation with amylase and lipase levels is recommended. 3. Gastric wall thickening and mucosal hyperenhancement. Suggesting gastritis. COMMENTS: Consistent with the [employer]'s Incidental Findings Committee white paper (J [employer] Hawk [employer]iol 2018): Any incidental renal lesion less than 1 cm or classified as too small to characterize, or any incidental cystic renal lesion characterized as simple-appearing, is likely benign. No follow-up imaging is recommended for these lesions per consensus recommendations based on imaging criteria.
--- NOTE | 2024-09-01 14:34 | XR_ITS ---
PROCEDURE INFORMATION: Exam: XR Chest Exam date and time: 09/01/2024 3:56 PM Age: 64 years old Clinical indication: Other: Upper abdominal pain TECHNIQUE: Imaging protocol: Radiologic exam of the chest. Views: 2 views. COMPARISON: CR XR CHEST 2V 09/01/2024 3:56 PM FINDINGS: Lungs: Unremarkable. No consolidation. Pleural spaces: Unremarkable. No pleural effusion. No pneumothorax. Heart/Mediastinum: Question a small hiatal hernia. Bones/joints: Unremarkable. IMPRESSION: Question a small hiatal hernia.
[2024-09-01] MEDS: BELLADONNA ALKALOIDS 60 ML ML PO (14:44)
[2024-09-01] MEDS: ACETAMINOPHEN 1,000MG/100ML VIAL 1000 MG IV (14:44)
[2024-09-01] MEDS: ONDANSETRON 4MG/2ML VIAL 4 MG IV (14:44)
[2024-09-01] MEDS: KETOROLAC 30MG/ML VIAL 15 MG IV (14:44)
[2024-09-01 14:54] LABS: Microscopic, Urine URINE MICROSCOPIC (MICROSCOPIC)
[2024-09-01 15:00] LABS: Basophils # 0.1 K/mm3 (0-0.2); Basophils % 0.3 % (0.1-2.0); Eosinophils % 0.1 % (0.1-12.0); Hematocrit 38.5 % (37.0-47.0); Lymphocytes # 2.4 K/mm3 (0.7-4.5); Lymphocytes % 13.8 % (10-50); Mean Corpuscular HGB Conc 31.2 g/dL (31.8-35.4); Mean Corpuscular Hemoglobin 24.8 pg (27.0-31.2); Mean Corpuscular Volume 79.7 fl (81-99); Monocytes # 1.4 K/mm3 (0.1-1.0); Monocytes % 8.2 % (1.7-9.3); Neutrophils # 13.4 K/mm3 (1.8-7.8); Neutrophils % 77.3 % (37.0-80.0); Platelet Count 512 K/mm3 (142-424); Red Blood Count 4.83 M/mm3 (4.20-5.40); Red Cell Distribution Width 16.7 % (11.5-17.5); White Blood Count 17.3 K/mm3 (4.8-10.8)
[2024-09-01 15:06] LABS: MANUAL DIFFERENTIAL MANUAL DIFFERENTIAL (MANUAL DIFF)
[2024-09-01 15:08] LABS: Alanine Aminotransferase 24 U/L (12-78); Albumin Level 4.9 g/dl (3.5-5.0); Albumin/Globulin Ratio 1.3 (1.1-1.8); Alkaline Phosphatase 159 U/L (38-126); Anion Gap 18.5 mEq/L (5-15); Aspartate Amino Transferase 28 U/L (14-36); Bilirubin,Total 0.8 mg/dl (0.2-1.3); Blood Urea Nitrogen 34 mg/dl (7-17); Calcium 9.5 mg/dl (8.4-10.2); Carbon Dioxide 21 mmol/L (22.0-30.0); Chloride 100 mmol/L (98-107); Creatinine Clearance Estimated 47 mL/min (50-200); Estimated Glomerular Filt Rate 30 ml/min (>60); GFR (African American) 36 ML/MIN (>60); Globulin 3.8 g/dL (1.3-3.2); Glucose 148 mg/dl (74-100); Magnesium 1.6 mg/dl (1.6-2.3); Potassium 4.5 mmoL/L (3.5-5.1); Sodium 135 mmol/L (136-145); Total Protein,Serum 8.7 g/dl (6.3-8.2)
[2024-09-01 15:10] LABS: Appearance,Urine CLEAR (Clear); Bilirubin,Urine Negative (Negative); Blood, Urine Negative (Negative); Color,Urine YELLOW (Yellow); Glucose,Urine (UA) Negative (Negative); Ketones,Urine Negative (Negative); Leukocyte Esterase,Urine Negative (Negative); Nitrate,Urine Negative (Negative); PH,Urine 6.5 (5.0-8.5); Protein,Urine Negative (Negative); Urobilinogen,Urine 0.2 EU/dl (0.2)
[2024-09-01 15:19] LABS: NT Pro Brain Natriuretic Pep. 170 pg/mL (0-125)
--- NOTE | 2024-09-01 15:25 | ECG_ITS ---
APPROVED REPORT Exam: Resting ECG HR:80 bpm ECG Measurements Heart Rate 80 AXES ME 128 P -64 QRSd 97 QRS 0 QT 357 T 39 QTc 393 Conclusion JUNCTIONAL RHYTHM ABNORMAL RHYTHM ECG Electronically signed by : ILIR MEHTA, 09/02/2024 15:42:58
--- NOTE | 2024-09-01 15:29 | PC.NURSE ---
PT WAS GIVEN A WARM BLANKET AND PLACED IN A GOWN AT THIS TIME NO OTHER NEEDS AND VISITOR AT BS AND CALL LIGHT IN REACH
--- NOTE | 2024-09-01 15:53 | PC.NURSE ---
I notified Dr. Cruz the pt triggered for possible sepsis. Orders are being placed at this time. The pt will not get the complete sepsis bolus due to an elevated BNP per DR. CRUZ.
[2024-09-01 15:59] LABS: Procalcitonin 0.112 ng/mL (0.0-2.0)
[2024-09-01 16:00] LABS: Lymphocytes % 15 % (10-50); Monocytes % 12 % (2-9); Neutrophils % 72 % (42-76); Total Cells Counted 100
[2024-09-01 16:01] LABS: Platelet Estimate Slight Increase; RBC Morphology Normal
[2024-09-01] MEDS: 0.9 % SODIUM CHLORIDE 1000ML 1,000 ML 999 ML IV (16:02)
[2024-09-01] MEDS: SODIUM CHLORIDE 0.9% 10ML SYR (RAD ONLY) 10 ML IV (16:20)
[2024-09-01] MEDS: IOPAMIDOL-370 (76%);100ML BOTTLE 75 ML IV (16:20)
[2024-09-01 16:33] LABS: Bacteria,Urine Trace /lpf
[2024-09-01 16:38] LABS: HIV Combo NEGATIVE (Negative)
[2024-09-01 16:39] LABS: Lipase 16767 U/L (23-300)
[2024-09-01 16:45] LABS: Hepatitis C Ab Qual. W/ RFX NEGATIVE (Negative)
--- NOTE | 2024-09-01 16:50 | PC.NURSE ---
call made to switch house operator for bed placement
[2024-09-01 16:52] LABS: Lactic Acid 1.1 mmol/L (0.7-2.1)
--- NOTE | 2024-09-01 16:52 | EXP.HP ---
History of Present Illness *Admission Date: 09/01/24 *Reason for visit:: abdominal pain *History of present illness: Ms. Kaplan is a 64-year-old female with history of diabetes, obesity sleep apnea, hypertension who was started on tirzepatide approximately 3 months ago. Developed abdominal pain over the past day or 2 in her upper abdomen radiating to her back. Accompanied by some nausea. Pain severe. Presented to the ER for evaluation. On CT of abdomen, concern for peripancreatic stranding. Lipase elevated at 16,000. Medicine consulted for concern for pancreatitis. Additional lab abnormalities include white count of 17, stable liver enzymes, kidney function abnormal with BUN 34, creatinine 1.7 which is up from her baseline of 1.2. Afebrile. Hypertensive likely secondary to pain. I went to the ER to evaluate the patient. Family at bedside. States she still having pain, tender in her epigastric and left upper quadrant on exam. Stable on room air. States she had a previous episode with Ozempic back in 2019 that landed her in the hospital for 4 days. Denies chest pain or shortness of breath. Surrogate decision maker is her son. Patient is a full code [facility] Disclaimer: The information contained in this section may have been updated after the patient was seen, as this information can be updated by other users. Medical History Osteoarthritis of left knee Ulcerative colitis EVELINE (obstructive sleep apnea) Edema Hypertension Hyperlipidemia Diabetes mellitus Surgical History History of colonoscopy H/O removal of cyst H/O shoulder surgery History of hysterectomy Family History Sister Cancer Diabetes Hypertension Brother Cancer Diabetes Father Cancer Hypertension Mother Hypertension Social History Smoking Status: Never smoker years smoked: 3 how long ago did patient quit smoking: >20 years alcohol intake: never substance use type: denies use current occupational status: retired Travel in the last 8 weeks: None household members: none housing: apartment Other Medical History Have you received the Pneumonia Vaccine: Yes Review of Systems Review of Systems Review of systems (narrative): 14 point review of systems performed, pertinent positives and negatives as per HPI Meds Home Medications and Allergies Home Medications ?Medication ?Instructions ?Recorded ?Confirmed ?Type terazosin 1 mg capsule 2 mg (2 x 1 mg) PO DAILY blood 12/18/23 09/01/24 Rx pressure 90 days #180 caps tirzepatide 2.5 mg/0.5 mL See Rx Instructions .Route 05/08/24 09/01/24 Rx subcutaneous pen injector .COMPLEX #12 ea (Adama) albuterol sulfate 90 mcg/actuation 1 inh inhalation QID #6.7 grams 06/22/24 09/01/24 Rx aerosol inhaler atorvastatin 40 mg tablet See Rx Instructions .Route 07/05/24 09/01/24 Rx .COMPLEX #90 tabs furosemide 40 mg tablet See Rx Instructions .Route 07/05/24 09/01/24 Rx .COMPLEX #90 tabs lisinopril 40 mg tablet See Rx Instructions .Route 07/05/24 09/01/24 Rx .COMPLEX #90 tabs pantoprazole 40 mg tablet,delayed See Rx Instructions .Route 07/05/24 09/01/24 Rx release .COMPLEX #90 tabs potassium chloride 10 mEq See Rx Instructions .Route 07/05/24 09/01/24 Rx capsule,extended release .COMPLEX #90 caps insulin glargine U-300 conc 300 See Rx Instructions .Route .COMPLEX 07/20/24 09/01/24 History unit/mL (3 mL) subcutaneous pen (Toujeo Max U-300 SoloStar) codeine 10 mg-guaifenesin 100 mg/5 10 ml PO Q4-6H PRN cough #120 mL 08/23/24 09/01/24 Rx mL oral liquid New Prescriptions to Start Prescriptions: Allergies Allergy/AdvReac Type Severity Reaction Status Date / Time amlodipine (From NORVASC) Allergy Severe S-SWELLS-OR Verified 09/01/24 14:56 AL/THROAT semaglutide (From Ozempic) AdvReac renal Verified 09/01/24 14:56 failure jardiance AdvReac yeast Uncoded 09/01/24 13:25 infection Exam Data for Last 24 hours Vital signs and Labs for Last 24 Hours: Temp Pulse Resp BP Pulse Ox O2 Del Method 98.3 F 79 20 180/103 H 97 Room Air 09/01/24 14:46 09/01/24 16:35 09/01/24 16:00 09/01/24 16:35 09/01/24 16:35 09/01/24 16:35 Laboratory Results - last 24 hr 09/01/24 14:41: WBC 17.3 H, RBC 4.83, Hgb 12.0 L, Hct 38.5, MCV 79.7 L, MCH 24.8 L, MCHC 31.2 L, RDW 16.7, Plt Count 512 H, MPV 9.0, Neut % (Auto) 77.3, Lymph % (Auto) 13.8, [place] % (Auto) 8.2, Eos % (Auto) 0.1, Baso % (Auto) 0.3, Neut # (Auto) 13.4 H, Lymph # (Auto) 2.4, [place] # (Auto) 1.4 H, Eos # (Auto) 0.0, Baso # (Auto) 0.1, Total Counted 100, Neutrophils % (Manual) 72, Lymphocytes % (Manual) 15, Monocytes % (Manual) 12 H, Basophils % (Manual) 1.0, Platelet Estimate Slight increase, RBC Morphology Normal, Sodium 135 L, Potassium 4.5, Chloride 100, Carbon Dioxide 21 L, Anion Gap 18.5 H, BUN 34 H, Creatinine 1.70 H, Estimated Creat Clear 47, Estimated GFR 30 L, Est GFR ( Amer) 36 L, Glucose 148 H, Calcium 9.5, Magnesium 1.6, Total Bilirubin 0.8, AST 28, ALT 24, Alkaline Phosphatase 159 H, NT-Pro-B Natriuret Pep 170 H, Total Protein 8.7 H, Albumin 4.9, Globulin 3.8 H, Albumin/Globulin Ratio 1.3, Lipase 68572 H, Procalcitonin 0.112, HCV Ab SANA w/Rflx PCR Qn Negative, HIV Ag/Ab Combo Qual Negative 09/01/24 14:49: Urine Color Yellow, Urine Appearance Clear, Urine pH 6.5, Ur Specific [place] 1.010, Urine Protein Negative, Urine Glucose (UA) Negative, Urine Ketones Negative, Urine Blood Negative, Urine Nitrate Negative, Urine Bilirubin Negative, Urine Urobilinogen 0.2, Ur Leukocyte Esterase Negative, Urine RBC None, Urine WBC 3-5, Ur Squamous Epith Cells 3-5, Urine Bacteria Trace I & O for Last 24 hours: Intake & Output 08/29/24 08/30/24 08/31/24 09/01/24 23:59 23:59 23:59 23:59 Weight 91.172 kg Constitutional Constitutional: mild distress, obese, chronically ill appearing and cooperative *Routine HEENT Exam Head: Present normocephalic Eye: Present EOMI and PERRL ENT: Present mucous membranes moist *Routine Neck Exam Neck: Present supple; Absent lymphadenopathy *Routine Respiratory Exam Respiratory: Present CTA bilaterally; Absent rhonchi, wheezes or crackles *Routine Cardiovascular Exam Cardiovascular: Present RRR *Routine Abdominal Exam Abdominal: Present soft, normoactive bowel sounds and tenderness (Most prominent in epigastric and left upper quadrant. No rebound or guarding); Absent distended *Routine Rectal Exam Rectal:: deferred *Routine Genitalia Exam Genitalia:: deferred *Routine Extremities Exam Extremities: Absent cyanosis, clubbing or edema *Routine Skin Exam Skin: Present warm; Absent rash *Routine Neurological Exam Neurological: Present alert, oriented X3 and moving all extremities; Absent altered mental status Assessment and Plan *Assessment and plan (1) Acute pancreatitis: Status: Acute Qualifiers: Acute pancreatitis complication: unspecified Pancreatitis type: other Qualified Code(s): K85.80 - Other acute pancreatitis without necrosis or infection Category: Medical Code(s): K85.90 - Acute pancreatitis without necrosis or infection, unspecified (2) EVELINE (obstructive sleep apnea): Status: Acute Category: Medical Code(s): G47.33 - Obstructive sleep apnea (adult) (pediatric) (3) GERD (gastroesophageal reflux disease): Status: Acute Category: Medical Code(s): K21.9 - Gastro-esophageal reflux disease without esophagitis (4) Hypertension: Status: Acute Category: Medical Code(s): I10 - Essential (primary) hypertension (5) Hyperlipidemia: Status: Acute Category: Medical Code(s): E78.5 - Hyperlipidemia, unspecified (6) Diabetes mellitus: Status: Acute Category: Medical Code(s): E11.9 - Type 2 diabetes mellitus without complications (7) Obesity (BMI 30.0-34.9): Status: Chronic Category: Medical Code(s): E66.811 - Obesity, class 1 Plan 64-year-old female who presents with abdominal pain. Found to have pancreatitis. Discussed case with ER physician, request admission for pain control and medical management of pancreatitis. I agreed to admit for further care. Clear liquid diet for now. Slow advancement of p.o. nutrition pending tolerance. Necessitating inpatient care. Problems addressed as follows: Pancreatitis -Previous episode due to GLP-1 approximately 5 years ago, suspect similar etiology at this time. No alcohol use. Current tirzepatide usage. -Lipid panel ordered for the morning to evaluate triglycerides -Clear liquid diet - lipase elevated at 16,700, white count elevated at 17. Likely reactive. Slight bump in kidney function with BUN 34, creatinine 1.7. -Liver enzymes normal with bilirubin 0.8, AST and ALT 28 and 24 respectively. Alk phos 159. -Repeat CBC, CMP, magnesium ordered for the morning -Per my review of CT, has mild stranding around the pancreas. No appreciable cyst. - Clear liquid diet continue LR at 100 cc an hour. Oxycodone 5 mg p.o. every 4 hours as needed for severe breakthrough pain. Continue Toradol 15 mg IV every 6 hours as needed for moderate pain - monitor for toxicity Diabetes: A1c pending. Sliding scale insulin with fingersticks ACHS. Resume insulin glargine at half dose 30 units nightly. Evaluate for increased needs as patient tolerates p.o. intake Obesity complicates all aspects of her care Continue pantoprazole nightly for GERD Continue terazosin 2 mg daily for hypertension Holding lisinopril in the setting of MIC, reevaluate blood pressure needs in the morning. Goal systolic less than 180 Full code Clear liquid diet Lovenox 40 mg subcu daily
[2024-09-01 17:04] LABS: Lactate Dehydrogenase 211 U/L (313-618)
[2024-09-01] MEDS: HYDROMORPHONE 2MG/ML SYRINGE 0.5 MG IV (17:07)
[2024-09-01] MEDS: LACTATED RINGERS 1000ML 1,000 ML 100 ML IV ×2 (17:08→21:36)
--- NOTE | 2024-09-01 17:26 | PC.NURSE ---
Attempted to call report the nurse is unavailable at this time, attempted to call report to charge. unable to reach charge at this time.
--- NOTE | 2024-09-01 17:29 | PC.NURSE ---
Report called to Sterling PIZANO
--- NOTE | 2024-09-01 17:46 | PC.NURSE ---
arrived by w/c from ED
[2024-09-01 19:11] LABS: C-Reactive Protein 12.4 mg/L (0-4)
[2024-09-01] MEDS: ALBUTEROL-HFA 90MCG/PUFF INHALER 8GM 1 PUFF IH (21:16)
[2024-09-01 21:22] LABS: POC Glucose,Bedside 90 (70-110)
[2024-09-01] MEDS: INSULIN GLARGINE 100 UNITS/ML 3ML FLEXPEN 30 UNIT SUBCUT (21:35)
[2024-09-01] MEDS: PANTOPRAZOLE 40MG TABLET 40 MG PO (21:36)
[2024-09-01] MEDS: OXYCODONE 5MG W/APAP 325MG TABLET 1 EACH PO (21:53)
[2024-09-02] VITALS (7 sets, daily range): BP systolic 93–124; BP diastolic 55–70; PULSE 64–104; RESP 16–17; TEMP 36.2–37; O2SAT 92–98; BMI 34.2
[2024-09-02] MEDS: LACTATED RINGERS 1000ML 1,000 ML 100 ML IV ×2 (04:21→23:25)
[2024-09-02 04:27] LABS: Basophils % 0.3 % (0.1-2.0); Eosinophils % 0.3 % (0.1-12.0); Lymphocytes # 2.6 K/mm3 (0.7-4.5); Lymphocytes % 17.2 % (10-50); Mean Corpuscular HGB Conc 31.8 g/dL (31.8-35.4); Monocytes % 8.9 % (1.7-9.3); Neutrophils % 72.9 % (37.0-80.0); Red Blood Count 4.21 M/mm3 (4.20-5.40); Red Cell Distribution Width 16.9 % (11.5-17.5)
[2024-09-02 04:32] LABS: Mean Corpuscular Hemoglobin 24.9 pg (27.0-31.2); Mean Corpuscular Volume 78.4 fl (81-99); Platelet Count 449 K/mm3 (142-424); White Blood Count 15.2 K/mm3 (4.8-10.8)
[2024-09-02 04:33] LABS: MANUAL DIFFERENTIAL MANUAL DIFFERENTIAL (MANUAL DIFF); Monocytes # 1.4 K/mm3 (0.1-1.0); Neutrophils # 11.1 K/mm3 (1.8-7.8)
[2024-09-02 04:37] LABS: Alanine Aminotransferase 19 U/L (12-78); Albumin Level 4.1 g/dl (3.5-5.0); Albumin/Globulin Ratio 1.3 (1.1-1.8); Alkaline Phosphatase 119 U/L (38-126); Anion Gap 13.8 mEq/L (5-15); Aspartate Amino Transferase 21 U/L (14-36); Bilirubin,Total 0.6 mg/dl (0.2-1.3); Blood Urea Nitrogen 38 mg/dl (7-17); Calcium 8.8 mg/dl (8.4-10.2); Carbon Dioxide 23 mmol/L (22.0-30.0); Chloride 99 mmol/L (98-107); Chol/HDL Ratio 2.8 (1-3.5); Cholesterol 116 mg/dl (140-200); Creatinine Clearance Estimated 43 mL/min (50-200); Estimated Glomerular Filt Rate 26 ml/min (>60); GFR (African American) 32 ML/MIN (>60); Globulin 3.2 g/dL (1.3-3.2); Glucose 89 mg/dl (74-100); HDL Cholesterol 41 mg/dl (40-60); Hemoglobin 10.5 g/dL (12.2-16.2); Magnesium 1.6 mg/dl (1.6-2.3); Potassium 4.8 mmoL/L (3.5-5.1); Sodium 131 mmol/L (136-145); Total Protein,Serum 7.3 g/dl (6.3-8.2); Triglycerides 73 mg/dl (30-150); VLDL Cholesterol 15 mg/dL (0-40)
[2024-09-02 04:48] LABS: Direct LDL Cholesterol 50.76 mg/dL (100-129)
[2024-09-02 05:19] LABS: Lymphocytes % 20 % (10-50); Monocytes % 8 % (2-9); Neutrophils % 72 % (42-76); Total Cells Counted 100
[2024-09-02 05:20] LABS: Microcytosis 1+; Platelet Estimate Normal
[2024-09-02] MEDS: OXYCODONE 5MG W/APAP 325MG TABLET 1 EACH PO (05:59)
[2024-09-02 06:02] LABS: POC Glucose,Bedside 75 (70-110)
--- NOTE | 2024-09-02 06:13 | PC.NURSE ---
Pt. was admitted with pancreatitis. c/o pain to epigastric area that radiates to the back between shoulder blades. Pt. medicated x 2 for c/o pain per MAR. IVF infusing. Pt. up to bathroom the void ambulates with standby assist. Pt. on clear liquids diet and tolerating well. VSS, Personal items and call choi in reach
[2024-09-02] MEDS: ALBUTEROL-HFA 90MCG/PUFF INHALER 8GM 1 PUFF IH ×4 (06:25→19:14)
--- NOTE | 2024-09-02 07:35 | EXP.ACUTE.PN ---
Subjective *Date: 09/02/24 *Time: 12:43 Interval history: Patient feels little better today. No nausea or vomiting. Tried some clears this morning with little abdominal discomfort. Stable on room air. Afebrile. No chest pain or shortness of breath Medical Exam Vital signs and Labs for Last 24 Hours: Vital Signs Temp Pulse Pulse Resp BP BP Pulse Ox 09/02/24 06:55 09/02/24 06:26 94 L 09/02/24 05:00 09/02/24 03:53 97.2 F L 64 16 124/70 96 09/02/24 03:00 09/02/24 01:00 09/01/24 23:00 09/01/24 21:00 09/01/24 20:00 09/01/24 19:45 97.5 F L 65 18 132/70 98 09/01/24 18:46 09/01/24 17:41 98.2 F 77 16 170/93 H 09/01/24 17:26 67 170/93 H 96 09/01/24 16:35 79 180/103 H 97 09/01/24 16:34 76 182/102 H 96 09/01/24 16:30 79 160/91 H 90 L 09/01/24 16:21 78 168/91 H 99 09/01/24 16:00 101 H 20 121/77 92 L 09/01/24 15:55 81 12 116/71 95 09/01/24 15:50 82 14 115/74 96 09/01/24 15:45 83 14 120/68 94 L 09/01/24 15:40 78 14 115/71 93 L 09/01/24 15:35 80 15 114/74 92 L 09/01/24 15:30 80 12 118/74 96 09/01/24 14:46 98.3 F 95 H 16 126/61 98 09/01/24 14:40 100 H 116/72 95 09/01/24 14:35 97 H 109/72 L 99 09/01/24 14:30 97 H 126/61 98 O2 Del Method 09/02/24 06:55 Room Air 09/02/24 06:26 Room Air 09/02/24 05:00 Room Air 09/02/24 03:53 Room Air 09/02/24 03:00 Room Air 09/02/24 01:00 Room Air 09/01/24 23:00 Room Air 09/01/24 21:00 Room Air 09/01/24 20:00 Room Air 09/01/24 19:45 Room Air 09/01/24 18:46 Room Air 09/01/24 17:41 09/01/24 17:26 Room Air 09/01/24 16:35 Room Air 09/01/24 16:34 Room Air 09/01/24 16:30 Room Air 09/01/24 16:21 Room Air 09/01/24 16:00 Room Air 09/01/24 15:55 Room Air 09/01/24 15:50 Room Air 09/01/24 15:45 Room Air 09/01/24 15:40 Room Air 09/01/24 15:35 Room Air 09/01/24 15:30 Room Air 09/01/24 14:46 Room Air 09/01/24 14:40 09/01/24 14:35 09/01/24 14:30 Intake and Output 09/01/24 09/01/24 09/02/24 15:59 23:59 07:59 Intake Total 525 / 525 Output Total 0 / 0 0 / 0 Balance 0 / 525 525 / 525 Intake: Intake, Oral Amount 225 / 225 Intake, Total IV Amount 300 / 300 Lactated Ringers 1000ML 1,000 300 / 300 ml @ 100 mls/hr IV .Q10H [facility] Rx #:[id number] Output: Output, Urine Amount 0 / 0 0 / 0 Other: Number of Voids 2 Number of Unmeasured Voids 1 Weight 91.172 kg 91.17 kg 93.213 kg Patient Weight 09/02/24 23:59 Weight 93.213 kg Laboratory Results - last 24 hr 09/01/24 14:41: WBC 17.3 H, RBC 4.83, Hgb 12.0 L, Hct 38.5, MCV 79.7 L, MCH 24.8 L, MCHC 31.2 L, RDW 16.7, Plt Count 512 H, MPV 9.0, Neut % (Auto) 77.3, Lymph % (Auto) 13.8, [place] % (Auto) 8.2, Eos % (Auto) 0.1, Baso % (Auto) 0.3, Neut # (Auto) 13.4 H, Lymph # (Auto) 2.4, [place] # (Auto) 1.4 H, Eos # (Auto) 0.0, Baso # (Auto) 0.1, Total Counted 100, Neutrophils % (Manual) 72, Lymphocytes % (Manual) 15, Monocytes % (Manual) 12 H, Basophils % (Manual) 1.0, Platelet Estimate Slight increase, RBC Morphology Normal, Sodium 135 L, Potassium 4.5, Chloride 100, Carbon Dioxide 21 L, Anion Gap 18.5 H, BUN 34 H, Creatinine 1.70 H, Estimated Creat Clear 47, Estimated GFR 30 L, Est GFR ( Amer) 36 L, Glucose 148 H, Lactate 1.1, Calcium 9.5, Magnesium 1.6, Total Bilirubin 0.8, AST 28, ALT 24, Alkaline Phosphatase 159 H, Lactate Dehydrogenase 211 L, C-Reactive Protein 12.4 H, NT-Pro-B Natriuret Pep 170 H, Total Protein 8.7 H, Albumin 4.9, Globulin 3.8 H, Albumin/Globulin Ratio 1.3, Lipase 66799 H, Procalcitonin 0.112, HCV Ab SANA w/Rflx PCR Qn Negative, HIV Ag/Ab Combo Qual Negative 09/01/24 14:49: Urine Color Yellow, Urine Appearance Clear, Urine pH 6.5, Ur Specific [place] 1.010, Urine Protein Negative, Urine Glucose (UA) Negative, Urine Ketones Negative, Urine Blood Negative, Urine Nitrate Negative, Urine Bilirubin Negative, Urine Urobilinogen 0.2, Ur Leukocyte Esterase Negative, Urine RBC None, Urine WBC 3-5, Ur Squamous Epith Cells 3-5, Urine Bacteria Trace 09/01/24 21:10: POC Glucose 90 09/02/24 04:10: WBC 15.2 H, RBC 4.21, Hgb 10.5 L D, Hct 33.0 L, MCV 78.4 L, MCH 24.9 L, MCHC 31.8, RDW 16.9, Plt Count 449 H, MPV 9.0, Neut % (Auto) 72.9, Lymph % (Auto) 17.2, [place] % (Auto) 8.9, Eos % (Auto) 0.3, Baso % (Auto) 0.3, Neut # (Auto) 11.1 H, Lymph # (Auto) 2.6, [place] # (Auto) 1.4 H, Eos # (Auto) 0.0, Baso # (Auto) 0.0, Total Counted 100, Neutrophils % (Manual) 72, Lymphocytes % (Manual) 20, Monocytes % (Manual) 8, Platelet Estimate Normal, RBC Morphology Not Reportable, Microcytosis 1+, Sodium 131 L, Potassium 4.8, Chloride 99, Carbon Dioxide 23, Anion Gap 13.8, BUN 38 H, Creatinine 1.90 H, Estimated Creat Clear 43, Estimated GFR 26 L, Est GFR ( Amer) 32 L, Glucose 89 D, Calcium 8.8, Magnesium 1.6, Total Bilirubin 0.6, AST 21, ALT 19, Alkaline Phosphatase 119, Total Protein 7.3, Albumin 4.1 D, Globulin 3.2, Albumin/Globulin Ratio 1.3, Triglycerides 73, Cholesterol 116 L, LDL Cholesterol Direct 50.76 L, VLDL Cholesterol 15, HDL Cholesterol 41, Cholesterol/HDL Ratio 2.8 09/02/24 05:54: POC Glucose 75 I & O for Labs for Last 24 Hours: Intake & Output 08/30/24 08/31/24 09/01/24 09/02/24 23:59 23:59 23:59 23:59 Intake Total 525 / 525 Output Total 0 / 0 0 / 0 Balance 0 / 525 525 / 525 Weight 91.17 kg 93.213 kg Constitutional: Present no acute distress, obese and cooperative Head: Present atraumatic and normocephalic ENT: Present normal exam Respiratory: Present normal respiratory effort; Absent rhonchi, wheezes or crackles Cardiac: Present Reg Rate and Rhythm GI: Present soft, tenderness (Most prominent left upper quadrant) and normal bowel sounds; Absent distention Extremities: Present normal inspection and full ROM Skin: Present intact; Absent erythema Neuro: Present Grossly Intact, alert, awake, oriented x 3 and moves all extremities Assessment and Plan *Assessment and plan (1) Acute pancreatitis: Status: Acute Qualifiers: Acute pancreatitis complication: unspecified Pancreatitis type: other Qualified Code(s): K85.80 - Other acute pancreatitis without necrosis or infection Category: Medical Code(s): K85.90 - Acute pancreatitis without necrosis or infection, unspecified (2) EVLEINE (obstructive sleep apnea): Status: Acute Category: Medical Code(s): G47.33 - Obstructive sleep apnea (adult) (pediatric) (3) GERD (gastroesophageal reflux disease): Status: Acute Category: Medical Code(s): K21.9 - Gastro-esophageal reflux disease without esophagitis (4) Hypertension: Status: Acute Category: Medical Code(s): I10 - Essential (primary) hypertension (5) Hyperlipidemia: Status: Acute Category: Medical Code(s): E78.5 - Hyperlipidemia, unspecified (6) Diabetes mellitus: Status: Acute Category: Medical Code(s): E11.9 - Type 2 diabetes mellitus without complications (7) Obesity (BMI 30.0-34.9): Status: Chronic Category: Medical Code(s): E66.811 - Obesity, class 1 Plan 64-year-old female who presents with abdominal pain. Found to have pancreatitis. Discussed case with ER physician, request admission for pain control and medical management of pancreatitis. I agreed to admit for further care. Clear liquid diet for now. Slow advancement of p.o. nutrition pending tolerance. Necessitating inpatient care. Problems addressed as follows: Pancreatitis -Previous episode due to GLP-1 approximately 5 years ago, suspect similar etiology at this time. No alcohol use. Current tirzepatide usage. -Triglycerides 73 this morning. White count 15.2. Likely still reactive. -Continue clear liquid diet -Repeat CBC, CMP, magnesium and lipase ordered for the morning -Kidney function still slightly elevated for patient with BUN 38, creatinine 1.9. - Clear liquid diet continue LR at 100 cc an hour. Oxycodone 5 mg p.o. every 4 hours as needed for severe breakthrough pain. Continue Toradol 15 mg IV every 6 hours as needed for moderate pain - monitor for toxicity Diabetes: A1c pending. Sliding scale insulin with fingersticks ACHS. Morning glucose 89. Continue insulin glargine at half dose 30 units nightly. Obesity complicates all aspects of her care Continue pantoprazole nightly for GERD Continue terazosin 2 mg daily for hypertension Holding lisinopril in the setting of MIC, reevaluate blood pressure needs in the morning. Goal systolic less than 180 Full code Clear liquid diet Lovenox 40 mg subcu daily
[2024-09-02] MEDS: ONDANSETRON 4MG/2ML VIAL 4 MG IV (08:13)
[2024-09-02] MEDS: ENOXAPARIN 40MG/0.4ML SYRINGE 40 MG SUBCUT (09:33)
[2024-09-02] MEDS: TERAZOSIN 1MG CAPSULE 2 MG PO (09:33)
[2024-09-02 12:01] LABS: POC Glucose,Bedside 84 (70-110)
[2024-09-02 18:51] LABS: POC Glucose,Bedside 82 (70-110)
[2024-09-02] MEDS: PANTOPRAZOLE 40MG TABLET 40 MG PO (21:19)
[2024-09-02] MEDS: INSULIN GLARGINE 100 UNITS/ML 3ML FLEXPEN 30 UNIT SUBCUT (21:20)
[2024-09-02] MEDS: KETOROLAC 30MG/ML VIAL 30 MG IV (21:28)
[2024-09-02 21:47] LABS: POC Glucose,Bedside 70 (70-110)
[2024-09-03] MEDS: LACTATED RINGERS 1000ML 1,000 ML 100 ML IV (03:10)
--- NOTE | 2024-09-03 03:25 | PC.NURSE ---
Pt woke up not feeling well. Pt. nadiya aldrich. Blood sugar 55. [place] juice with sugar given, Shady Rubio APRN notified.
[2024-09-03 03:49] LABS: POC Glucose,Bedside 73 (70-110)
[2024-09-03 03:49] LABS: POC Glucose,Bedside 55 (70-110)
[2024-09-03 04:00] VITALS: BP 104/40; PULSE 56; RESP 16; TEMP 36.3; O2SAT 97; BMI 35.2
--- NOTE | 2024-09-03 06:16 | PC.NURSE ---
Pt. is alert and orientated x 4. Pt. had minimal pain overnight. Pt. on clear liquids tolerating well. Pt. is a diabetic, around 0320 Pt. awoke, shaky, clammy and feeling like she had low blood sugar. blood sugar was 55, pt. had orange juice with 2 pks of sugar. Blood sugar cam up to 73. Pt. felt better after the orange juice. No nausea or vomiting
[2024-09-03 06:31] LABS: POC Glucose,Bedside 83 (70-110)
[2024-09-03 07:56] VITALS: BP 144/72; PULSE 67; RESP 18; TEMP 36.6; O2SAT 97
[2024-09-03] MEDS: TERAZOSIN 1MG CAPSULE 2 MG PO (08:28)
[2024-09-03] MEDS: ENOXAPARIN 40MG/0.4ML SYRINGE 40 MG SUBCUT (08:28)
[2024-09-03 08:32] LABS: Basophils % 0.3 % (0.1-2.0); Eosinophils # 0.2 K/mm3 (0.0-0.4); Eosinophils % 1.3 % (0.1-12.0); Hematocrit 30.4 % (37.0-47.0); Hemoglobin 9.6 g/dL (12.2-16.2); Lymphocytes # 2.4 K/mm3 (0.7-4.5); Mean Corpuscular HGB Conc 31.6 g/dL (31.8-35.4); Mean Corpuscular Hemoglobin 25.2 pg (27.0-31.2); Mean Corpuscular Volume 79.8 fl (81-99); Mean Platelet Volume 9.4 fl (7.4-10.4); Monocytes # 1.2 K/mm3 (0.1-1.0); Monocytes % 10.3 % (1.7-9.3); Neutrophils # 8.1 K/mm3 (1.8-7.8); Neutrophils % 67.7 % (37.0-80.0); Platelet Count 385 K/mm3 (142-424); Red Blood Count 3.81 M/mm3 (4.20-5.40); Red Cell Distribution Width 16.8 % (11.5-17.5)
[2024-09-03 08:43] LABS: Albumin Level 3.5 g/dl (3.5-5.0); Chloride 99 mmol/L (98-107); Potassium 4.8 mmoL/L (3.5-5.1); Sodium 130 mmol/L (136-145)
[2024-09-03 08:45] LABS: Alanine Aminotransferase 17 U/L (12-78); Anion Gap 13.8 mEq/L (5-15); Aspartate Amino Transferase 21 U/L (14-36); Bilirubin,Total 0.7 mg/dl (0.2-1.3); Blood Urea Nitrogen 32 mg/dl (7-17); Carbon Dioxide 22 mmol/L (22.0-30.0); Creatinine Clearance Estimated 49 mL/min (50-200); Estimated Glomerular Filt Rate 30 ml/min (>60); GFR (African American) 36 ML/MIN (>60)
[2024-09-03 08:46] LABS: Albumin/Globulin Ratio 1.1 (1.1-1.8); Alkaline Phosphatase 104 U/L (38-126); Calcium 8.5 mg/dl (8.4-10.2); Globulin 3.1 g/dL (1.3-3.2); Glucose 61 mg/dl (74-100); Magnesium 1.7 mg/dl (1.6-2.3); Total Protein,Serum 6.6 g/dl (6.3-8.2)
[2024-09-03 08:48] LABS: Lipase 1204 U/L (23-300)
[2024-09-03 08:59] LABS: Hemoglobin A1C 6.5 % (4.0-6.0)
[2024-09-03] MEDS: ALBUTEROL-HFA 90MCG/PUFF INHALER 8GM 1 PUFF IH (10:13)
--- NOTE | 2024-09-03 10:13 | EXP.DC.SUM ---
General Admission date:: 09/01/24 Discharge date: 09/03/24 HPI HPI HPI: Ms. Kaplan is a 64-year-old female with history of diabetes, obesity sleep apnea, hypertension who was started on tirzepatide approximately 3 months ago. Developed abdominal pain over the past day or 2 in her upper abdomen radiating to her back. Accompanied by some nausea. Pain severe. Presented to the ER for evaluation. On CT of abdomen, concern for peripancreatic stranding. Lipase elevated at 16,000. Medicine consulted for concern for pancreatitis. Additional lab abnormalities include white count of 17, stable liver enzymes, kidney function abnormal with BUN 34, creatinine 1.7 which is up from her baseline of 1.2. Afebrile. Hypertensive likely secondary to pain. I went to the ER to evaluate the patient. Family at bedside. States she still having pain, tender in her epigastric and left upper quadrant on exam. Stable on room air. States she had a previous episode with Ozempic back in 2019 that landed her in the hospital for 4 days. Denies chest pain or shortness of breath. Surrogate decision maker is her son. Patient is a full code Hospital Course Hospital Course Hospital Course: 64-year-old female who presents with abdominal pain. Found to have pancreatitis. Discussed case with ER physician, request admission for pain control and medical management of pancreatitis. I agreed to admit for further care. Pain showed gradual improvement. Able to advance diet with good tolerance. Stable to discharge home with further management as an outpatient. Recommend avoiding GLP-1's in the future. 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 No alcohol use. Current tirzepatide usage. Lipase elevated at 16,700 on admission. Improved to 1200 by day of discharge. White count showed improvement to 12, suspect secondary to inflammation and reactive state. Triglycerides normal at 73. Advanced from clears to low-fat diet during admission. Pain showed significant improvement. Continue pain control at discharge with Tylenol and ibuprofen. Likely etiology is for GLP-1. Strongly encourage avoiding this in the future. Will need to reevaluate alternative treatment options for diabetes and weight. Diabetes: A1c 6.5. Treated with sliding scale insulin during admission. Glargine was halved during admission. Recommend continuing at half dose for now until she is back to her regular diet and her mom morning glucoses are greater than 150. Continue pantoprazole nightly for GERD Continue terazosin 2 mg daily for hypertension Hold lisinopril in the setting of MIC. Blood pressure improved. Kidney function improving, BUN 32, creatinine 1.7 improving from peak of 1.9. Okay to resume lisinopril tomorrow. Total time spent on discharge 32 minutes in counseling, documentation, chart review, and direct care with patient. Exam Data for Last 24 hours Vital signs and Labs for Last 24 Hours: Temp Pulse Resp BP Pulse Ox O2 Del Method 97.8 F 67 18 144/72 H 97 Room Air 09/03/24 07:56 09/03/24 07:56 09/03/24 07:56 09/03/24 07:56 09/03/24 07:56 09/03/24 09:00 Laboratory Results - last 24 hr 09/02/24 11:52: POC Glucose 84 09/02/24 16:28: POC Glucose 82 09/02/24 21:16: POC Glucose 70 09/03/24 03:22: POC Glucose 55 L 09/03/24 03:34: POC Glucose 73 09/03/24 06:24: WBC 12.0 H, RBC 3.81 L, Hgb 9.6 L, Hct 30.4 L, MCV 79.8 L, MCH 25.2 L, MCHC 31.6 L, RDW 16.8, Plt Count 385, MPV 9.4, Neut % (Auto) 67.7, Lymph % (Auto) 20.0, [place] % (Auto) 10.3 H, Eos % (Auto) 1.3, Baso % (Auto) 0.3, Neut # (Auto) 8.1 H, Lymph # (Auto) 2.4, [place] # (Auto) 1.2 H, Eos # (Auto) 0.2, Baso # (Auto) 0.0, Sodium 130 L, Potassium 4.8, Chloride 99, Carbon Dioxide 22, Anion Gap 13.8, BUN 32 H, Creatinine 1.70 H, Estimated Creat Clear 49, Estimated GFR 30 L, Est GFR ( Amer) 36 L, Glucose 61 L, POC Glucose 83, Hemoglobin A1c 6.5 H, Calcium 8.5, Magnesium 1.7, Total Bilirubin 0.7, AST 21, ALT 17, Alkaline Phosphatase 104, Total Protein 6.6, Albumin 3.5 D, Globulin 3.1, Albumin/Globulin Ratio 1.1, Lipase 1204 H I & O for Last 24 hours: Intake & Output 08/31/24 09/01/24 09/02/24 09/03/24 23:59 23:59 23:59 23:59 Intake Total 2124 240 / 240 Output Total 0 / 0 0 / 0 0 / 0 Balance 0 / 525 2124 240 / 240 Weight 91.17 kg 93.213 kg 95.799 kg Microbiology Reports for the Last 24 Hours: Microbiology 09/01/24 16:05 Blood Blood Culture - Preliminary NO GROWTH AFTER 24 HOURS 09/01/24 16:05 Blood Blood Culture - Preliminary NO GROWTH AFTER 24 HOURS Constitutional Constitutional: no acute distress, obese and cooperative *Routine HEENT Exam Head: Present normocephalic Eye: Present EOMI and PERRL ENT: Present mucous membranes moist *Routine Neck Exam Neck: Present supple; Absent lymphadenopathy *Routine Respiratory Exam Respiratory: Present CTA bilaterally; Absent rhonchi, wheezes or crackles *Routine Cardiovascular Exam Cardiovascular: Present RRR and Normal S1 *Routine Abdominal Exam Abdominal: Present soft, normoactive bowel sounds and tenderness (mild, improved in LUQ) *Routine Rectal Exam Patient deferred: visual exam *Routine Exam Patient deferred: external exam *Routine Extremities Exam Extremities: Absent cyanosis, clubbing or edema *Routine Skin Exam Skin: Present warm; Absent rash *Routine Neurological Exam Neurological: Present alert, oriented X3 and moving all extremities; Absent altered mental status Results Data Completed and Pending Labs on day of discharge: Labs from last 24 hours 09/03/24 09/03/24 09/03/24 06:24 03:34 03:22 WBC 12.0 H RBC 3.81 L Hgb 9.6 L Hct 30.4 L MCV 79.8 L MCH 25.2 L MCHC 31.6 L RDW 16.8 Plt Count 385 MPV 9.4 Neut % (Auto) 67.7 Lymph % (Auto) 20.0 [place] % (Auto) 10.3 H Eos % (Auto) 1.3 Baso % (Auto) 0.3 Neut # (Auto) 8.1 H Lymph # (Auto) 2.4 [place] # (Auto) 1.2 H Eos # (Auto) 0.2 Baso # (Auto) 0.0 Sodium 130 L Potassium 4.8 Chloride 99 Carbon Dioxide 22 Anion Gap 13.8 BUN 32 H Creatinine 1.70 H Estimated Creat Clear 49 Estimated GFR 30 L Est GFR ( Amer) 36 L Glucose 61 L POC Glucose 83 73 55 L Hemoglobin A1c 6.5 H Calcium 8.5 Magnesium 1.7 Total Bilirubin 0.7 AST 21 ALT 17 Alkaline Phosphatase 104 Total Protein 6.6 Albumin 3.5 D Globulin 3.1 Albumin/Globulin Ratio 1.1 Lipase 1204 H 09/02/24 09/02/24 09/02/24 21:16 16:28 11:52 WBC RBC Hgb Hct MCV MCH MCHC RDW Plt Count MPV Neut % (Auto) Lymph % (Auto) [place] % (Auto) Eos % (Auto) Baso % (Auto) Neut # (Auto) Lymph # (Auto) [place] # (Auto) Eos # (Auto) Baso # (Auto) Sodium Potassium Chloride Carbon Dioxide Anion Gap BUN Creatinine Estimated Creat Clear Estimated GFR Est GFR ( Amer) Glucose POC Glucose 70 82 84 Hemoglobin A1c Calcium Magnesium Total Bilirubin AST ALT Alkaline Phosphatase Total Protein Albumin Globulin Albumin/Globulin Ratio Lipase Preliminary micro results at discharge 09/01/24 16:05 Blood Culture - Preliminary Blood NO GROWTH AFTER 24 HOURS 09/01/24 16:05 Blood Culture - Preliminary Blood NO GROWTH AFTER 24 HOURS DS: Diagnosis Discharge Diagnosis (1) Acute pancreatitis: Status: Acute Code(s): K85.90 - Acute pancreatitis without necrosis or infection, unspecified Qualifiers: Acute pancreatitis complication: unspecified Pancreatitis type: other Qualified Code(s): K85.80 - Other acute pancreatitis without necrosis or infection (2) EVELINE (obstructive sleep apnea): Status: Acute Code(s): G47.33 - Obstructive sleep apnea (adult) (pediatric) (3) GERD (gastroesophageal reflux disease): Status: Acute Code(s): K21.9 - Gastro-esophageal reflux disease without esophagitis (4) Hypertension: Status: Acute Code(s): I10 - Essential (primary) hypertension (5) Hyperlipidemia: Status: Acute Code(s): E78.5 - Hyperlipidemia, unspecified (6) Diabetes mellitus: Status: Acute Code(s): E11.9 - Type 2 diabetes mellitus without complications (7) Obesity (BMI 30.0-34.9): Status: Chronic Code(s): E66.811 - Obesity, class 1 Meds Home Medications and Allergies Home Medications ?Medication ?Instructions ?Recorded ?Confirmed ?Type terazosin 1 mg capsule 2 mg (2 x 1 mg) PO DAILY blood 12/18/23 09/01/24 Rx pressure 90 days #180 caps albuterol sulfate 90 mcg/actuation 1 inh inhalation QID #6.7 grams 06/22/24 09/01/24 Rx aerosol inhaler insulin glargine U-300 conc 300 60 unit SQ DAILY 07/20/24 09/02/24 History unit/mL (3 mL) subcutaneous pen (Toujeo Max U-300 SoloStar) atorvastatin 40 mg tablet 40 mg PO HS 09/02/24 09/02/24 History furosemide 40 mg tablet 40 mg PO DAILY 09/02/24 09/02/24 History lisinopril 40 mg tablet 40 mg PO DAILY 09/02/24 09/02/24 History pantoprazole 40 mg tablet,delayed 40 mg PO HS 09/02/24 09/02/24 History release potassium chloride 10 mEq 10 meq PO DAILY 09/02/24 09/02/24 History capsule,extended release New Prescriptions to Start Prescriptions: Allergies Allergy/AdvReac Type Severity Reaction Status Date / Time amlodipine (From NORVASC) Allergy Severe S-SWELLS-OR Verified 09/01/24 14:56 AL/THROAT empagliflozin (From AdvReac Intermediate YEAST Verified 09/02/24 08:11 Jardiance) INFECTION semaglutide (From Ozempic) AdvReac renal Verified 09/01/24 14:56 failure Discharge Plan Disposition Patient Disposition: Home, Self-Care Condition: Fair Discharge Order Discharge Orders: Discharge Order (Routine); Ordered 09/03/24 Ordered By: David Hernandez Follow up Plan Follow up with: Mayito Kilgore MD [Primary Care Provider] - Enter time for follow up (Please call for a follow up appt. ) Prescriptions/Medication Reconciliation: Continued terazosin 1 mg capsule 2 mg PO DAILY 90 Days Qty: 180 3RF albuterol sulfate 90 mcg/actuation HFA aerosol inhaler 1 inh inhalation QID Qty: 6.7 3RF furosemide 40 mg tablet 40 mg PO DAILY atorvastatin 40 mg tablet 40 mg PO HS pantoprazole 40 mg tablet,delayed release (DR/EC) 40 mg PO HS lisinopril 40 mg tablet 40 mg PO DAILY potassium chloride 10 mEq capsule, extended release 10 meq PO DAILY Held insulin glargine U-300 conc [Toujeo Max U-300 SoloStar] 300 unit/mL (3 mL) insulin pen 60 unit SQ DAILY Hold Instructions: 30 units nightly for now. Monitor morning glucose, midday, nighttime. Please record these and take them to your PCP when you see him for follow-up. If eating well and morning glucose elevating above 150, increase to your normal insulin dose of 60 units nightly Dose Instruction: INJECT 66 UNITS UNDER THE SKIN EVERY DAY Rx Instructions: INJECT 60 UNITS UNDER THE SKIN EVERY DAY Discontinued Mounjaro 2.5 mg/0.5 mL pen injector 2.5 mg SQ WEEKLY Problem Reconciliation Problems Reviewed?: Yes Patient Discharge Instructions ACTIVITY: Continue current activity DIET: continue same diet and low fat, low cholesterol Patient Instructions: Acute Pancreatitis, DI for Pancreatitis Print Language: Chinese Providers Primary Care Provider: Mayito Kilgore Admit Provider: Daivd Hernandez Attending Provider: David Hernandez
[2024-09-03 10:14] VITALS: O2SAT 99
[2024-09-03] MEDS: humaLOG 100 UNITS/ML 10ML VIAL (SSI) SUBCUT (11:34)
[2024-09-03 11:43] LABS: POC Glucose,Bedside 238 (70-110)
--- NOTE | 2024-09-04 11:16 | SW/DCPLANNER ---
Spoke with patient on the phone. Patient stated that she is doing well. Patient stated that she is calling to schedule her follow up appointment with her primary care provider. Patient stated that she has no concern or questions at this time. Patient stated that everyone was so pleasant and nice. Chance Dietrich
== END 2024-09-03 13:18 | disposition home or self-care (01) | DRG 440 ==
LOC: ER 16:50 → 2ND 17:39
PROVIDERS: Physician Assistant; Admitting Provider Internal Medicine Adolescent Medicine; Emergency Provider Emergency Medicine; PCP Family Medicine; Visit Provider Internal Medicine Adolescent Medicine
DX: K85.30 Drug induced acute pancreatitis without necrosis or infection (principal); K21.9 Gastro-esophageal reflux disease without esophagitis; I10 Essential (primary) hypertension; E78.5 Hyperlipidemia, unspecified; E11.9 Type 2 diabetes mellitus without complications; T38.3X5A Adverse effect of insulin and oral hypoglycemic [antidiabetic] drugs, initial encounter; E66.9 Obesity, unspecified; Z68.35 Body mass index [BMI] 35.0-35.9, adult; Z71.3 Dietary counseling and surveillance; Z79.82 Long term (current) use of aspirin; Z79.899 Other long term (current) drug therapy; Z87.891 Personal history of nicotine dependence; Z79.85 Long-term (current) use of injectable non-insulin antidiabetic drugs; Z79.4 Long term (current) use of insulin; Y92.9 Unspecified place or not applicable; Z79.02 Long term (current) use of antithrombotics/antiplatelets
CPT/HCPCS: 36415; 71046; 74177; 80053; 80061; 81001; 82962; 83036; 83605; 83615; 83690; 83735; 83880; 84145; 85007; 85025; 86140; 86803; 87040; 87389; 93005; 94640; 99291; J0131; J1171; J1650; J1885; J2405; J7030; J7120; Q9967

== ENCOUNTER 2024-09-26 09:02 | Outpatient (CLI) | payer MEDICARE, MEDICAID, SELFPAY ==
[2024-09-26 17:26] LABS: Basophils # 0.1 K/mm3 (0-0.2); Basophils % 0.5 % (0.1-2.0); Eosinophils # 0.1 K/mm3 (0.0-0.4); Eosinophils % 1.4 % (0.1-12.0); Hematocrit 34.9 % (37.0-47.0); Hemoglobin 10.5 g/dL (12.2-16.2); Lymphocytes # 2.7 K/mm3 (0.7-4.5); Lymphocytes % 28.9 % (10-50); Mean Corpuscular HGB Conc 30.1 g/dL (31.8-35.4); Mean Corpuscular Hemoglobin 25.5 pg (27.0-31.2); Mean Corpuscular Volume 84.9 fl (81-99); Mean Platelet Volume 10.2 fl (7.4-10.4); Monocytes # 0.6 K/mm3 (0.1-1.0); Monocytes % 6.6 % (1.7-9.3); Neutrophils # 5.9 K/mm3 (1.8-7.8); Neutrophils % 62.4 % (37.0-80.0); Platelet Count 500 K/mm3 (142-424); Red Blood Count 4.11 M/mm3 (4.20-5.40); Red Cell Distribution Width 18.3 % (11.5-17.5); White Blood Count 9.4 K/mm3 (4.8-10.8)
[2024-09-26 17:44] LABS: Albumin Level 4.1 g/dl (3.5-5.0); Chloride 104 mmol/L (98-107); Potassium 4.7 mmoL/L (3.5-5.1); Sodium 140 mmol/L (136-145)
[2024-09-26 17:46] LABS: Blood Urea Nitrogen 26 mg/dl (7-17); Estimated Glomerular Filt Rate 45 ml/min (>60); GFR (African American) 54 ML/MIN (>60)
[2024-09-26 17:47] LABS: Alanine Aminotransferase 21 U/L (12-78); Albumin/Globulin Ratio 1.3 (1.1-1.8); Alkaline Phosphatase 120 U/L (38-126); Anion Gap 12.7 mEq/L (5-15); Aspartate Amino Transferase 21 U/L (14-36); Bilirubin,Total 0.4 mg/dl (0.2-1.3); Calcium 9.4 mg/dl (8.4-10.2); Carbon Dioxide 28 mmol/L (22.0-30.0); Globulin 3.2 g/dL (1.3-3.2); Glucose 85 mg/dl (74-100); Total Protein,Serum 7.3 g/dl (6.3-8.2)
[2024-09-26 17:52] LABS: Creatinine,Urine Random 19 mg/dL (Not Estab.)
[2024-09-26 17:54] LABS: Microalbumin < 6.000 mg/L (0-16.7)
== END 2024-09-26 23:59 | disposition home or self-care (01) ==
LOC: LAB.DROPOF 09-27 12:09
PROVIDERS: PCP Family Medicine; Visit Provider Family Medicine
DX: E11.9 Type 2 diabetes mellitus without complications (principal); E66.811 Obesity, class 1; Z68.35 Body mass index [BMI] 35.0-35.9, adult
CPT/HCPCS: 80053; 82043; 82570; 85025

== ENCOUNTER 2025-02-05 07:56 | Outpatient (RCR) | payer MEDICARE, MEDICAID, SELFPAY | END 2025-02-05 23:59 | disposition home or self-care (01) | LOC: PT.CARL 07:56 | PROVIDERS: PCP Family Medicine; Visit Provider Physical Medicine & Rehabilitation | DX: G89.29 Other chronic pain (principal); M25.561 Pain in right knee | CPT/HCPCS: 97161 ==

== ENCOUNTER 2025-03-05 08:00 | Outpatient (RCR) | payer MEDICARE, MEDICAID, SELFPAY | END 2025-03-05 23:59 | disposition home or self-care (01) | LOC: PT.CARL 08:00 | PROVIDERS: PCP Family Medicine; Visit Provider Physical Medicine & Rehabilitation | DX: M25.561 Pain in right knee (principal); G89.29 Other chronic pain | CPT/HCPCS: 97014; 97035; 97110; G0283 ==

== ENCOUNTER 2025-03-08 07:43 | Outpatient (CLI) | payer MEDICARE, MEDICAID, SELFPAY ==
--- OUTSIDE RECORDS SUMMARY | 2025-01-31 10:40 | XMS_ITS | Encounter Summary ---
Author Organization [facility] Address [address] [place] [address] Care Team Providers Care Paper Box Maker Name Role Phone Mayito Kilgore MD Primary Care Provider Mariely vailable Reason for Referral * Consultation (Routine) - Authorized Specialty Diagnoses / Procedures Referred By Contac t Referred To Contact Physical Therapy Diagnoses Chronic pain of right knee Piter Hogan DO [address] [place] [address] Phone: tel: fax: Referral ID Status Reason Start Date Expiration Date Visits Requested Visits Authorized [id number] Authorized Specialty Services Required 01/31/2025 08/02/2026 1 1 Scheduling Instructions Knee OA. To work on ROM and strengthening exercises for the knee for pain prevention. Please include modalities for pain control as available. No restrictions. * Other Medical (Routine) - Closed Specialty Diagnoses / Procedures Referred By Contact Referred To Contact Physical Medicine and Rehabilitation Diagnoses Chronic pain of right knee Procedures Injection - Large Joint Piter Hogan DO [address] [place] [address] Phone: tel: fax: Referral ID Status Reason Start Date Expiration Date Visits Re quested Visits Authorized [id number] Closed 01/31/2025 08/02/2026 1 1 Reason for Visit * Reason Comments New Patient Encounter Details Date Type Department Care Team (Late st Contact Info) Description 01/31/2025 10:40 AM EDT Office Visit [facility] [address] [place] [address] Piter Hogan DO [address] [place] [address] Chronic pain of right knee (Primary Dx) Social History Tobacco Use Types Packs/Day Years Used Date Smoking Tobacco: Never Smokeless Tobacco: Never Alcohol Use Standard Drinks/Week Comments Never 0 (1 standard drink = 0.6 oz pur e alcohol) Humiliation, Afraid, Rape, and Kick questionnair e Answer Date Recorded Within the last year, have y ou been afraid of your partner or ex-partner? No 03/23/2024 Within the last year, have y ou been humiliated or emotionally abused in other ways by your partner or ex-partner? No Within the last year, have y ou been kicked, hit, slapped, or otherwise physically hurt by your partner or ex-partner? No 03/23/2024 Within the last year, have y ou been raped or forced to have any kind of sexual activity by your partner or ex-partner? No 03/23/2024 Social Connection and Isolation Panel Answer Date Recorded In a typical week, how many times do you talk on the phone with family, friends, or neighbors? More than three times a week 03/23/2024 How often do you get togethe r with friends or relatives? More than three times a week 03/23/2024 How often do you attend chur ch or restorationism services? More than 4 times per year 03/23/2024 Do you belong to any clubs o r organizations such as oriental orthodox groups, unions, fraternal or athletic groups, or school groups? No 03/23/2024 How often do you attend meet ings of the clubs or organizations you belong to? Never 03/23/2024 Are you , , di vorced, , never , or living with a partner? Never 03/23/2024 AUDIT-C Answer Date Recorded Q1: How often do you have a drink containing alcohol? Never 03/23/2024 Q2: How many drinks containi ng alcohol do you have on a typical day when you are drinking? Patient does not drink Q3: How often do you have si x or more drinks on one occasion? Never 03/23/2024 PHQ-2 Answer Date Recorded Patient Health Questionnaire-2 Score 0 01/31/2025 [facility] - Occupational Stress Questionnaire Answer Date Recorded Do you feel stress - tense, restless, nervous, or anxious, or unable to sleep at night because your mind is troubled all the time - these days? Only a little 03/23/2024 Exercise Vital Sign Answer Date Recorde d On average, how many days pe r week do you engage in moderate to strenuous exercise (like a brisk walk)? 3 days 03/23/2024 On average, how many minutes do you engage in exercise at this level? 30 min 03/23/2024 Hunger Vital Sign Answer Date Recorded Within the past 12 months, y ou worried that your food would run out before you got the money to buy more. Never true 03/23/20 24 Within the past 12 months, t he food you bought just didn't last and you didn't have money to get more. Never true 03/23/2024 PRAPARE - Transportation Answer Date Re corded In the past 12 months, has l ack of transportation kept you from medical appointments or from getting medications? No 03/09 In the past 12 months, has l ack of transportation kept you from meetings, work, or from getting things needed for daily living? No 03/23/2024 Housing Stability Vital Sign Answer Hair e Recorded In the last 12 months, was t here a time when you were not able to pay the mortgage or rent on time? No 03/23/2024 Number of Places Lived in the Last Year Not on f ile 03/23/2024 In the last 12 months, was t here a time when you did not have a steady place to sleep or slept in a long term (including now)? No 03/23/2024 CAGE ASSESSMENT Answer Date Recorded Cage unable to access Not on file 03/22/2024 Cage max number of drinks Not on file 2023 Cage Beverages a week Not on file 03/22/2024 Have you ever felt you should CUT down on your d rinking? 0 03/22/2024 Have you been ANNOYED by people criticizing your drinking? 0 03/22/2024 Have you felt GUILTY about your drinking? 0 03/22/2024 Have you had a drink first t davon in the morning (EYE-PLUG SHAPER HAND) to steady your nerves or to get rid of a hangover? 0 03/22/2024 CAGE Questionnaire Score 0 024 Utilities Answer Date Recorded In the past 12 months has th Nets[employer], gas, oil, or water Your Policy Manager threatened to shut off services in your home? No 03/23/2024 Comments No Sex and Gender Information Value Date Recorded Sex Assigned at Female 03/07/2024 6:00 PM EDT Legal Sex Female 8:50 PM EDT Gender Identity Female 03/07/2024 6:00 PM EDT Sexual Orientation Not on file documented as of this encounter Last Filed Vital Signs Vital Sign Reading Time Taken Comments Blood Pressure 141/73 01/31/2025 10:34 AM EDT Pulse 60 01/31/2025 10:34 AM EDT Temperature - - Respiratory Rate - - Oxygen Saturation 96% 01/31/2025 10:34 AM EDT Inhaled Oxygen Concentration - - Weight 106 kg (233 lb) 01/31/2025 10:34 AM EDT Height 165.1 cm (5' 5 ) 01/31/2025 10:34 AM EDT Body Mass Index 38.77 01/31/2025 10:34 AM EDT documented in this encounter Functional Status * Over the past 2 weeks, how often have you been bothered by any of the following problems? Question Answer Date of Assessment Author Little interest or pleasure in doing things Not at all 01/31/2025 10:35 AM EDT Kylie Mendes Feeling down, depressed, or hopeless Not at all 01/08 10:35 AM EDT Kylie Mendes Patient Health Questionnaire-2 Score 0 01/08 10:35 AM EDT Kylie Mendes * Calculated C-SSRS Risk Score (Lifetime/Recent) Answer Date of Assessment Author No Risk Indicated 01/31/2025 10:35 AM EDT Malka Mendes * If you checked off any problems on this questionnaire so far, Question Answer Date of Assessment Author How difficult have these problems made it for you to do your work, take care of things at home, or get along with other people? Not difficult at all 01/31/2025 10:35 AM EDT Kylie Mendes * Question Answer Date of Assessment Author 1. Wish to be (Past 1 Month) No 025 10:35 AM EDT Kylie Mendes 2. Non-Specific Active Suici swathi Thoughts (Past 1 Month) No 01/31/2025 10:35 AM EDT Kylie Mendes 6. Suicidal Behavior (Lifetime) No 10:35 AM EDT Kylie Mendes documented as of this encounter Miscellaneous Notes * Patient Instructions - Piter Hogan DO - 01/31/2025 10:40 AM EDT Referral to therapy to work on knee exercises for pain prevention Plan for steroid injection to the right knee in a couple of weeks Xrays prior to next visit of the right knee * Progress Notes - Piter Hogan DO - 01/31/2025 10:40 AM EDT Physical Medicine and Rehabilitation Outpatient New Patient Visit The reason(s) for this visit is/are right knee pain Chief Complaint: Right knee pain Is this visit related to: Worker's Compensation Case No Motor Vehicle Accident No If yes are you currently undergoing litigation? No HPI Yarely Kaplan is a 64-year-old female w/ PMHx of DM2 (last A1C 7.2%), GERD, obesity, and knee OA s/p left TKA (03/22/24 Dr. Martin) who presents for evaluation of right knee pain. She notes the pain started earlier this year without injury or inciting event. She notes the pain is achy in nature. The pain is rated as an 8/10. Pain is worse with bending of the knee, standing from the sitting position, and most pain is noted with stairs. She notes she is no longer able to climb stairs at this time. The pain is localized to the medial joint line of the right knee. Pain does not radiate. She does get some crepitus. She notes she had a loud pop in the knee the other day and thought that it felt better afterwards, but otherwise the pain has been the same since then. She has tried topical medications including Voltaren, ice, heat, Tylenol, and ibuprofen without lasting benefit. She has not had formal physical therapy for the knee. But did undergo physical therapy for her left knee after replacement. She notes that her left knee did previously have steroid and then hyaluronic acid injections up until the need for surgery. She has not had any prior injections to the right knee. Onset: About 3 months ago Location: Right knee, medial joint line Duration: Constant Character: Achy Radiation: None Timing: Daily Associated Factors: None Exacerbating Factors: Standing, stairs Alleviating Factors: Rest Severity: On average pain level 8/10 and at worst pain level 8/10. Review of Systems 14 point ROS negative other than mentioned above and HPI. Medical Histories Past Medical: Past Medical History[1] Past Surgical: Surgical History[2] Allergies: Allergies[3] Family History: Family History[4] Family history reviewed with patient and not pertinent. Social History: Patient lives in [place], [place]. Lives in a(n) apartment with 0 stairs to enter and 0 stairs inside the home. Patient is single and lives at home alone. Education level includes high school Current/Past work history: Retired Tobacco: Denies use Alcohol: Denies use Recreational drug use: Denies use Home Exercise Program: Not Medications: Current Medications[5] Physical Exam: Visit Vitals BP (!) 141/73 Pulse 60 Ht 1.651 m (5' 5 ) Wt 106 kg (233 lb) SpO2 96% BMI 38.77 kg/m?? General: Well nourished, no acute distress. Psych: Alert and oriented. Mood and affect normal. Respiratory: nonlabored breathing and normal rate Cardiovascular: no edema and no clubbing Skin: warm, dry and intact. No rashes on exposed skin. Neuro: Speech fluent. Follows commands. Normal muscle tone. MSK: Gait intact but mildly antalgic over the right knee, well healed surgical incision over the left knee Tenderness to palpation in the right knee joint line particularly medially Positive patellar apprehension and grind testing No joint laxity to varus or valgus stress at 0 and 30?? Negative Nishi's testing Otherwise grossly neurovascularly intact in the bilateral lower extremities Results/Data: None Assessment: Yarely Kaplan is a 64 y.o. female w/ PMHx of DM2 (last A1C 7.2%), GERD, obesity,and knee OA s/p left TKA (03/22/24 Dr. Martin) who presents for evaluation of right knee pain which is consistent with osteoarthritis. This is a/an Chronic Progressing problem Assessment & Plan Chronic pain of right knee Orders: XR Knee Right 4+ Views; Future Injection - Large Joint; Future Physical Therapy (outgoing); Future Plan: Ordered x-ray of the right knee to evaluate for severity of osteoarthrosis Referral to physical therapy to work on range of motion, and strengthening exercises for the right knee for pain prevention Encouraged to continue with Tylenol and ibuprofen [id number] as needed for breakthrough pain control Plan for steroid injection to the right knee at next visit for additional pain control and to aid therapy progression. Discussed the risks and benefits of steroid injection, including elevation of blood sugar. Patient reassured that she monitors her blood sugar closely at home and will be able to manage according Follow up in about 2 weeks (around 02/14/2025) for right knee CSI . [1] Past Medical History: Diagnosis Date Adverse effect of anesthesia stopped breathing during colonoscopy 2021 Diabetes mellitus (CMS/HCC) GERD (gastroesophageal reflux disease) Hyperlipidemia Hypertension OA (osteoarthritis) Obstructive sleep apnea on CPAP [2] Past Surgical History: Procedure Laterality Date COLONOSCOPY CYST REMOVAL Right wrist HYSTERECTOMY ROTATOR CUFF REPAIR Bilateral [3] Allergies Allergen Reactions Amlodipine Swelling Empagliflozin Other - please document in the comment field Yeast infection Semaglutide Other - please document in the comment field Decreased kidney function and inflammed pancreas - hospitalized for 4 days [4] Family History Problem Relation Name Age of Onset Cancer Sister Cancer Diabetes Brother Chu Fish Diabetes Sister Ebony Cruz Diabetes Father's Brother Efren Fish Diabetes Sister Deedee Villasenor [5] Current Outpatient Medications: albuterol 108 (90 Base) MCG/ACT inhaler, Inhale 2 puffs every 4 (four) hours if needed., Disp: , Rfl: furosemide (Lasix) 40 MG tablet, , Disp: , Rfl: Insulin Glargine (TOUJEO MAX SOLOSTAR SC), Inject 66 Units under the skin every night., Disp: , Rfl: lisinopril 20 MG tablet, , Disp: , Rfl: pantoprazole (Protonix) 40 MG EC tablet, Take 1 tablet (40 mg) by mouth 1 (one) time each day., Disp: , Rfl: potassium chloride CR (Klor-Con M10) 10 MEQ ER tablet, Take 1 tablet (10 mEq) by mouth 1 (one) timeeach day. Do not crush or chew., Disp: , Rfl: potassium chloride ER (Micro-K) 10 MEQ ER capsule, , Disp: , Rfl: documented in this encounter Plan of Treatment Upcoming Encounters Date Type Department Care Team (Late st Contact Info) Description 05/21/2025 8:00 AM EDT Procedure Visit [facility] [address] [place] [address] Piter Hogan DO [address] [place] [address] 09/04/2025 1:00 PM EST Office Visit Medical [facility] [address], [address] [place] [address] Garland Martin MD [address] [place] [address] Scheduled Orders Name Type Priority Associated Diagnoses Orde r Schedule Injection - Large Joint Procedures Routine Chronic pain of right knee Expected: 02/14/2025 (Approximate), Expires: 08/04/2026 Scheduled Referrals Name Type Priority Associated Diagnoses Orde r Schedule Physical Therapy (outgoing) Outpatient Referral Routine Chronic pain of right knee Expected: 01/31/2025 (Approximate), Expires: 08/04/2026 documented as of this encounter Goals Goal Patient Goal Type Associated Problems Recent Progress Patient-Stated? Author Autogenerat ed Goal Care Plan Autogenerated Problem No Efraín Gonsalez MD documented as of this encounter Results * XR Knee Right 4+ Views (01/31/2025 11:41 AM EDT) Anatomical Region Laterality Modality Lower Extremities, Knee Right Digital Radiography Impressions 01/31/2025 11:47 AM EDT Mild to moderate knee osteoarthrosis greatest in the medial tibiofemoral compartment. No acute osseous finding. CRITICAL RESULT: No. COMMUNICATION: Per this written report. By electronically signing this report, I, the attending physician, attest that I have personally reviewed the images/data for the above examination(s) and agree with the final edited report. Drafted by Baljinder Fonseca MD on 01/31/2025 11:44 AM Final report signed by New Stinson MD on 01/31/2025 11:47 AM Narrative 01/31/2025 11:47 AM EDT CLINICAL INDICATION: knee osteoarthrosis TECHNIQUE: XR KNEE RIGHT 4+ VIEWS COMPARISON: 08/29/2024 radiograph FINDINGS: Mild to moderate medial compartment and mild lateral and mild patellofemoral compartment joint space narrowing. There is mild tricompartmental osteophytosis. Mild suprapatellar effusion. No acute fracture, dislocation or subluxation. No suspicious soft tissue finding. Procedure Note New Stinson MD - 01/31/2025 CLINICAL INDICATION: knee osteoarthrosis TECHNIQUE: XR KNEE RIGHT 4+ VIEWS COMPARISON: 08/29/2024 radiograph FINDINGS: Mild to moderate medial compartment and mild lateral and mildpatellofemoral compartment joint space narrowing. There is mildtricompartmental osteophytosis. Mild suprapatellar effusion. No acutefracture, dislocation or subluxation. No suspicious soft tissue finding. IMPRESSION: Mild to moderate knee osteoarthrosis greatest in the medial tibiofemoralcompartment. No acute osseous finding. CRITICAL RESULT: No. COMMUNICATION: Per this written report. By electronically signing this report, I, the attending physician, kyleat I have personally reviewed the images/data for the aboveexamination(s) and agree with the final edited report. Drafted by Baljinder Fonseca MD on 01/31/2025 11:44 AM Final report signed by New Stinson MD on 01/31/2025 11:47 AM us Piter Hogan DO IMG XR PROCEDURES Final Result documented in this encounter Visit Diagnoses Diagnosis Chronic pain of right knee- Primary Chronic pain of right knee documented in this encounter Additional Health Concerns Active Problems Noted Date Diagnosed Date Autogenerated Problem 11/27/2024 Assessment Noted Time A fall risk assessment has been complete d for the patient 01/31/2025 10:35 AM EDT A Body Mass Index follow-up plan has been documented for the patient 01/31/2025 11:12 AM EDT documented as of this encounter Care Teams Paper Box Maker Relationship Specialty Start Date End Date Mayito Kilgore MD PCP - General Family Medicine 05/04/23 documented as of this encounter
--- OUTSIDE RECORDS SUMMARY | 2025-01-31 11:29 | XMS_ITS | Encounter Summary ---
Author Organization Healthcare Address [address] [place] [address] Care Team Providers Care Director Of Orthopedics Name Role Phone Mayito Kilgore MD Primary Care Provider Mariely vailable Encounter Details Date Type Department Care Team (Latest Contact Info) Description 01/31/2025 11:29 AM EDT - 01/31/2025 11:59 PM EDT Hospital Encounter [facility] [address], [address] [place] [address] Chronic pain of right knee Discharge Disposition: Home or Self Care Social History Tobacco Use Types Packs/Day Years [...] often do you attend chur ch or buddhist services? More than 4 times per year 03/23/2024 Do you belong to any clubs o r organizations such as jew groups, unions, fraternal or athletic groups, or [...] Recorded Patient Health Questionnaire-2 Score 0 01/31/2025 [facility] - Occupational Stress Questionnaire Answer Date Recorded [...] place to sleep or slept in a correction (including now)? No 03/23/2024 CAGE ASSESSMENT Answer [...] drink first t davon in the morning (EYE-SHOP REPAIRER) to steady your nerves or to get rid of a hangover? 0 03/22/2024 CAGE Questionnaire Score 0 024 Utilities Answer Date Recorded In the past 12 months has th e electric, gas, oil, or water company threatened to shut off services in your home? No 03/23/2024 Comments No Sex and Gender Information Value Date Recorded Sex Assigned at Female 03/07/2024 6:00 PM EDT Legal Sex Female 8:50 PM EDT Gender Identity Female 03/07/2024 6:00 PM EDT Sexual Orientation Not on file documented as of this encounter Functional Status * Over the [...] Kylie Mendes documented as of this encounter Medications at Time of Discharge albuterol 108 (90 Base) MCG/ACT inhaler Inhale 2 puffs every 4 (four) hours if needed. 02/26/2023 furosemide (Lasix) 40 MG tablet 07/05/2024 Insulin Glargine (TOUJEO MAX SOLOSTAR SC) Inject 66 Units under the skin every night. lisinopril 20 MG tablet 06/25/2023 pantoprazole (Protonix) 40 MG EC tablet Take 1 tablet (40 mg) by mouth 1 (one) time each day. 04/27/2023 potassium chloride CR (Klor-Con M10) 10 MEQ ER tablet Take 1 tablet (10 mEq) by mouth 1 (one) time each day. Do not crush or chew. potassium chloride ER (Micro-K) 10 MEQ ER capsule 07/05/2024 documented as of this encounter Plan of Treatment Upcoming Encounters Date Type Department Care Team (Late st Contact Info) Description 05/21/2025 8:00 AM EDT Procedure Visit [facility] [address] [place] [address] Piter Hogan, DO [address] [place] [address] 09/04/2025 1:00 PM EST Office Visit Medical Office Building [facility] [address], [address] [place] [address] Garland Martin MD [address] [place] [address] documented as of this encounter Goals Goal Patient Goal Type Associated Problems Recent Progress Patient-Stated? Author Autogenerat ed Goal Care Plan Autogenerated Problem No Efraín Gonsalez MD documented as of this encounter Procedures Procedure Name Priority Date/Time Associated Diagnosis Comments XR KNEE RIGHT 4+ VIEWS Routine 01/31/2025 11:41 AM EDT Chronic pain of right knee documented in this encounter Results * XR Knee Right [...] signing this report, I, the attending physician, awa I have personally reviewed the images/data for the aboveexamination(s) and agree with the final edited report. Drafted by Baljinder Fonseca MD on 01/31/2025 11:44 AM Final report signed by New Stinson MD on 01/31/2025 11:47 AM us Piter S Edison DO IMG XR PROCEDURES Final Result documented in this encounter Visit Diagnoses Diagnosis Chronic pain of right knee documented in this encounter Additional Health Concerns Active Problems Noted Date Diagnosed Date Autogenerated Problem 11/27/2024 Assessment Noted Time A fall risk assessment has been complete d for the patient 01/31/2025 10:35 AM EDT A Body Mass Index follow-up plan has been documented for the patient 01/31/2025 11:12 AM EDT documented as of this encounter Care Teams Director Of Orthopedics Relationship Specialty Start Date End Date Mayito Kilgore MD PCP - General Family Medicine 05/04/23 documented as of this encounter
--- OUTSIDE RECORDS SUMMARY | 2025-02-15 09:20 | XMS_ITS | Encounter Summary ---
Author Organization [facility] Address [address] [place] [address] Care Team Providers Care Advice Clerk Name Role Phone Mayito Kilgore MD Primary Care Provider Mariely vailable Reason for Referral * Other Medical (Routine) - Pending Review Specialty Diagnoses / Procedures Referred By Contac t Referred To Contact Physical Medicine and Rehabilitation Diagnoses Chronic pain of right knee Primary osteoarthritis of right knee Procedures Injection - Large Joint Piter Hogan DO [address] [place] [address] Phone: tel: fax: Referral ID Status Reason Start Date Expiration Date V isits Requested Visits Authorized [id number] Pending Review 02/15/2025 08/17/2026 1 1 Reason for Visit * Other Medical (Routine) - Closed Specialty Diagnoses / Procedures Referred By Contact Referred To Contact Physical Medicine and Rehabilitation Diagnoses Chronic pain of right knee Procedures Injection - Large Joint Piter Hogan DO [address] [place] [address] Phone: tel: fax: Referral ID Status Reason Start Date Expiration Date Visits Re quested Visits Authorized [id number] Closed 01/31/2025 08/02/2026 1 1 Encounter Details Date Type Department Care Team (Late st Contact Info) Description 02/15/2025 9:20 AM EDT Procedure Visit [facility] [address] [place] [id number] Piter Hogan, [address] [place] [address] Primary osteoarthritis of right knee (Primary Dx); Chronic pain of right knee Social History Tobacco Use Types Packs/Day Years Used Date Smoking Tobacco: Never Smokeless Tobacco: Never Tobacco Cessation:Counseling Given: Not Answered Alcohol Use Standard Drinks/Week Comments Never 0 [...] week 03/23/2024 How often do you attend [facility] or yazidism services? More than 4 times per year 03/23/2024 Do you belong to any clubs o r organizations such as anabaptism groups, unions, fraternal or athletic groups, or [...] Recorded Patient Health Questionnaire-2 Score 0 01/31/2025 [facility] - Occupational Stress Questionnaire Answer Date Recorded [...] place to sleep or slept in a m[facility] (including now)? No 03/23/2024 CAGE ASSESSMENT Answer [...] drink first t davon in the morning (EYE-CATERING SERVER) to steady your nerves or to get rid of a hangover? 0 03/22/2024 CAGE Questionnaire Score 0 024 Utilities Answer Date Recorded In the past 12 months has th e [employer], gas, oil, or water [email or web address] threatened to shut off services in your home? No 03/23/2024 Comments No Sex and Gender Information Value Date Recorded Sex Assigned at Female 03/07/2024 6:00 PM EDT Legal Sex Female 8:50 PM EDT Gender Identity Female 03/07/2024 6:00 PM EDT Sexual Orientation Not on file documented as of this encounter Last Filed Vital Signs Vital Sign Reading Time Taken Comments Blood Pressure 164/81 02/15/2025 9:18 AM EDT Pulse 57 02/15/2025 9:18 AM EDT Temperature - - Respiratory Rate - - Oxygen Saturation 97% 02/15/2025 9:18 AM EDT Inhaled Oxygen Concentration - - Weight 106 kg (233 lb) 02/15/2025 9:18 AM EDT Height 165.1 cm (5' 5 ) 02/15/2025 9:18 AM EDT Body Mass Index 38.77 02/15/2025 9:18 AM EDT documented in this encounter Miscellaneous Notes * Progress Notes - Yusuf Storey, - 02/15/2025 9:20 AM EDT Physical Medicine and Rehabilitation Outpatient Follow Up Visit Chief Complaint: Right knee pain. Background History: Yarely Kaplan is a 64-year-old female w/ PMHx of DM2 (last A1C 7.2%), GERD, obesity, and knee OA s/p left TKA (03/22/24 Dr. Martin) who presents for evaluation of right knee pain. She notes the pain started earlier this year without injury or inciting event. She notes the pain is achy and burningin nature. The pain is rated as an [...] She does get some crepitus. She notes popping of the knee every once in a while. She has tried topical medications including Voltaren, ice, heat, Tylenol, and ibuprofen without lasting benefit. She notes that her left knee did previously have steroid and then hyaluronic acid injections up untilthe need for surgery. She has not had any prior injections to the right knee. Onset: About 3 months ago Location: Right knee, medial joint line Duration: Constant Character: Achy Radiation: None Timing: Daily Associated Factors: None Exacerbating Factors: Standing, stairs Alleviating Factors: Rest Severity: On average pain level 8/10 and at worst pain level 8/10. Interval History: No changes since last visit 01/31/25. Continues to have 8/10 pain despite working with dedicated PT 2x/week. She wishes to proceed with right knee CSI today. Details of past medical history, surgical history, family history, and social history reviewed in the medical record. Allergies: Allergies[1] Medications: Current Medications[2] The following portions of the chart were reviewed this encounter and updated as appropriate: Tobacco Allergies Meds Problems Med Hx Surg Hx Fam Hx ROS: 14 point ROS negative except for above. Physical Examination: Visit Vitals BP (!) 164/81 Pulse 57 Ht 1.651 m (5' 5 ) Wt 106 kg (233 lb) SpO2 97% BMI 38.77 kg/m?? General: Well nourished, no [...] the right knee joint line particularly medially as well as anterior/medial patella. Positive patellar apprehension and grind testing No joint laxity to varus or valgus stress at 0 and 30?? Negative Nishi's testing Otherwise grossly neurovascularly intact in the bilateral lower extremities DATA: XRAY === 01/31/25 === XR KNEE RIGHT 4+ VIEWS - Narrative - CLINICAL INDICATION: knee osteoarthrosis TECHNIQUE: XR KNEE RIGHT 4+ VIEWS COMPARISON: 08/29/2024 radiograph FINDINGS: Mild to moderate medial compartment and mild lateral and mild patellofemoral compartment joint space narrowing. There is mild tricompartmental osteophytosis. Mild suprapatellar effusion. No acute fracture, dislocation or subluxation. No suspicious soft tissue finding. - Impression - Mild to moderate knee osteoarthrosis greatest in [...] New Stinson MD on 01/31/2025 11:47 AM Procedure(s) performed today: Name of Procedure: Right Knee joint CSI Pre-Procedure Diagnosis: Primary osteoarthritis of right knee [M17.11] Post-Procedure Diagnosis: same as pre-procedure diagnosis Procedure Performed by: Yusuf Storey DO Supervised by: Piter Hogan DO The patient was examined and informed of the risks, benefits, and alternative options. The patient signed the informed consent form. A time out was performed to verify the correct patient identity, site, and procedure. In seated position, the right Knee was exposed, the knee joint was palpated, marked, and prepped with chloraprep. Under aseptic conditions, a 25 gauge 1.5 inch needle was advanced into the knee jointwithout ultrasound guidance, followed by an injection of 40mg Triamcinolone, 2mL 0.25% Bupivicaine,and 2mL 1% Lidocaine after negative aspiration. The needle removed from the injection site thereafter. A bandage was applied. The patient tolerated the procedure well with no complications. Pre-procedure pain level: 8/10 on Visual Analog Scale Post-procedure pain level: 8/10 on Visual Analog Scale Patient recommended to: 1. Keep the injection site clean and dry. 2. Continue medications as currently prescribed. 3. Avoid submerging injection site, eg. Hot tub, pool, baths, for at least 24 hours (Insert procedure note here if indicated) Assessment: Yarely Kaplan is a 64 y.o. female with a PMHx of DM2 (last A1C 7.2%), GERD, obesity, and knee OA s/p left TKA (03/22/24 Dr. Martin) who presents for evaluation of right knee painwhich is consistent with osteoarthritis. This is a/an Chronic Stable problem Assessment & Plan Chronic pain of right knee Orders: Injection - Large Joint triamcinolone acetonide (Kenalog-40) injection 40 mg lidocaine (Xylocaine) 1 % injection 2 mL bupivacaine PF (Marcaine) 0.25 % injection 5 mg Injection - Large Joint; Future Primary osteoarthritis of right knee Orders: triamcinolone acetonide (Kenalog-40) injection 40 mg lidocaine (Xylocaine) 1 % injection 2 mL bupivacaine PF (Marcaine) 0.25 % injection 5 mg Injection - Large Joint; Future Plan: - Right knee CSI performed today as described above. Patient tolerated procedure well. - Continue PT - Encouraged tylenol and ibuprofen as needed for breakthrough pain. - F/U 3 months with possible repeat injection, CSI vs Gel Follow up in about 3 months (around 05/18/2025) for right knee CSI . [1] Allergies Allergen Reactions Amlodipine Swelling Empagliflozin Other - please document in the comment field Yeast infection Semaglutide Other - please document in the comment field Decreased kidney function and inflammed pancreas - hospitalized for 4 days [2] Current Outpatient Medications: albuterol 108 (90 Base) [...] MEQ ER capsule, , Disp: , Rfl: Cosigned by Piter Hogan DO at 02/16/2025 12:00 PM EDT Associated attestation - Piter Hogan DO - 02/16/2025 12:00 PM EDT I saw and evaluated the patient with the resident/fellow. I discussed the case with the resident/fellow and agree with the findings and plan as documented. I was present for and participated in the entirety of the procedure. documented in this encounter Plan of Treatment Upcoming Encounters Date Type Department Care Team (Late st Contact Info) Description 05/21/2025 8:00 AM EDT Procedure Visit [facility] at [facility] [address] [place] [address] Piter Hogan DO [address] [place] [address] 09/04/2025 1:00 PM EST Office Visit Medical Office Building [facility] [address], [address] [place] [address] Garland Martin MD [address] [place] [address] Scheduled Orders Name Type Priority Associated Diagnoses Orde r Schedule Injection - Large Joint Procedures Routine Chronic pain of right knee Primary osteoarthritis of right knee Expected: 05/18/2025 (Approximate), Expires: 08/19/2026 documented as of this encounter Goals Goal Patient Goal Type Associated Problems Recent Progress Patient-Stated? Author Autogenerat ed Goal Care Plan Autogenerated Problem No Efraín Gonsalez MD documented as of this encounter Visit Diagnoses Diagnosis Primary osteoarthritis of right knee- Primary Chronic pain of right knee documented in this encounter Administered Medications Inactive Administered Medications - up to 3 most recent administrations Medication Order MAR Action Action Date Dose Rate Site bupivacaine PF (Marcaine) 0.25 % injection 5 mg 5 mg (2 mL), Injection, Once, 1 dose, On Mira 02/15/25 at 1030, RoutineIndications:Chronic pain of right knee,Primary osteoarthritis of right knee Given 02/15/2025 11:50 AM EDT 5 mg Other lidocaine (Xylocaine) 1 % injection 2 mL 2 mL, Injection, Once, 1 dose, On Mira 02/15/25 at 1030, RoutineIndications:Chronic pain of right knee,Primary osteoarthritis of right knee Given 02/15/2025 11:49 AM EDT 2 mL Other triamcinolone acetonide (Kenalog-40) injection 40 mg 40 mg, Intra-articular, Once, 1 dose, On Mira 02/15/25 at 1030, RoutineIndications:Chronic pain of right knee,Primary osteoarthritis of right knee Given 02/15/2025 11:49 AM EDT 40 mg Other documented in this encounter Additional Health Concerns Active Problems Noted Date Diagnosed Date Autogenerated Problem 11/27/2024 Assessment Noted Time A fall risk assessment has been complete d for the patient 02/15/2025 9:21 AM EDT A Body Mass Index follow-up plan has been documented for the patient 02/16/2025 12:01 PM EDT documented as of this encounter Care Teams Advice Clerk Relationship Specialty Start Date End Date Mayito Kilgore MD PCP - General Family Medicine 05/04/23 documented as of this encounter
--- OUTSIDE RECORDS SUMMARY | 2025-03-08 07:45 | XMS_ITS | Encounter Summary ---
Author Organization Healthcare Address [address] [place] [address] Care Team Providers Care Front End Web Designer Name Role Phone Mayito Kilgore MD Primary Care Provider Mariely vailable Encounter Details Date Type Department Care Team (Latest Contact Info) Description 02/15/2025 Travel Social History Tobacco Use Types Packs/Day Years [...] week 03/23/2024 How often do you attend [facility] or protestant services? More than 4 times per year 03/23/2024 Do you belong to any clubs o r organizations such as samaritan groups, unions, fraternal or athletic groups, or [...] Recorded Patient Health Questionnaire-2 Score 0 01/31/2025 [facility] - Occupational Stress Questionnaire Answer Date [...] place to sleep or slept in a prison (including now)? No 03/23/2024 CAGE ASSESSMENT Answer [...] drink first t davon in the morning (EYE-BANK MANAGER) to steady your nerves or to get rid of a hangover? 0 03/22/2024 CAGE Questionnaire Score 0 024 Utilities Answer Date Recorded In the past 12 months has th e [employer], gas, oil, or water company threatened to shut off services in your home? No 03/23/2024 Comments No Sex and Gender Information Value Date Recorded Sex Assigned at Female 03/07/2024 6:00 PM EDT Legal Sex Female 8:50 PM EDT Gender Identity Female 03/07/2024 6:00 PM EDT Sexual Orientation Not on file documented as of this encounter Plan of Treatment Upcoming Encounters Date Type Department Care Team ([facility] Contact Info) Description 05/21/2025 8:00 AM EDT Procedure Visit [facility] [address] [place] [address] Piter Hogan, [address] [place] [address] 09/04/2025 1:00 PM EST Office Visit Medical Office Building [facility] [address], [address] [place] [address] Garland Martin MD [address] [place] [address] documented as of this encounter Goals Goal Patient Goal Type Associated Problems Recent Progress Patient-Stated? Author Autogenerat ed Goal Care Plan Autogenerated Problem No Efraín Gonsalez MD documented as of this encounter Visit Diagnoses Not on filedocumented in this encounter Additional Health Concerns Active Problems Noted Date Diagnosed Date Autogenerated Problem 11/27/2024 Assessment Noted Time A fall risk assessment has been complete d for the patient 02/15/2025 9:21 AM EDT A Body Mass Index follow-up plan has been documented for the patient 02/16/2025 12:01 PM EDT documented as of this encounter Care Teams Front End Web Designer Relationship Specialty Start Date End Date Mayito Kilgore MD PCP - General Family Medicine 05/04/23 documented as of this encounter
--- OUTSIDE RECORDS SUMMARY | 2025-03-08 07:45 | XMS_ITS | Encounter Summary ---
Author Organization Healthcare Address [address] [place] [address] Care Team Providers Care Refuge Worker Name Role Phone Mayito Kilgore MD Primary Care Provider Mariely vailable Encounter Details Date Type Department Care Team (Latest Contact Info) Description 01/31/2025 Travel Social History Tobacco Use Types Packs/Day [...] week 03/23/2024 How often do you attend [facility] or lutheran services? More than 4 times per year 03/23/2024 Do you belong to any clubs o r organizations such as judaism groups, unions, fraternal or athletic groups, or [...] Recorded Patient Health Questionnaire-2 Score 0 01/31/2025 [facility] - Occupational Stress Questionnaire Answer Date [...] place to sleep or slept in a fdc (including now)? No 03/23/2024 CAGE ASSESSMENT Answer [...] drink first t davon in the morning (EYE-PUBLIC OPINION SURVEY TAKER) to steady your nerves or to get rid of a hangover? 0 03/22/2024 CAGE Questionnaire Score 0 024 Utilities Answer Date Recorded In the past 12 months has th e [employer], gas, oil, or water [employer] threatened to shut off services in your [...] Kylie Mendes documented as of this encounter Plan of Treatment Upcoming Encounters Date Type Department Care Team (Late st Contact Info) Description 05/21/2025 8:00 AM EDT Procedure Visit [facility] at [facility] [address] [place] [address] Piter Hogan S, [address] [place] [address] 09/04/2025 1:00 PM EST Office Visit Medical Office Building [facility] [address], [address] [place] [address] Garland Martin MD [address] [place] [address] documented as of this encounter [...] documented as of this encounter Care Teams Refuge Worker Relationship Specialty Start Date End Date Mayito Kilgore MD PCP - General Family Medicine 05/04/23 documented as of this encounter
--- OUTSIDE RECORDS SUMMARY | 2025-03-08 07:45 | XMS_ITS | Encounter Summary ---
Author Organization Healthcare Address [address] [place] [address] Care Team Providers Care Computer Designer Name Role Phone Mayito Kilgore MD Primary Care Provider Mariely vailable Encounter Details Date Type Department Care Team (Latest Contact Info) Description 01/25/2025 Travel Social History Tobacco Use Types Packs/Day [...] week 03/23/2024 How often do you attend [facility] or anabaptist services? More than 4 times per year 03/23/2024 Do you belong to any clubs o r organizations such as sabianist groups, unions, fraternal or athletic groups, or [...] more drinks on one occasion? Never 03/23/2024 [facility] - Occupational [...] place to sleep or slept in a group home (including now)? No 03/23/2024 CAGE ASSESSMENT Answer [...] drink first t davon in the morning (EYE-INDUSTRIAL GAS FITTER HELPER) to steady your nerves or to get rid of a hangover? 0 03/22/2024 CAGE Questionnaire Score 0 024 Utilities Answer Date Recorded In the past 12 months has e electric, gas, oil, or water company [...] Upcoming Encounters Date Type Department Care Team ([facility] Contact Info) Description 05/21/2025 8:00 AM EDT Procedure Visit [facility] at [facility] [address] [place] [address] Piter Hogan, [address] [place] [address] 09/04/2025 1:00 PM EST Office Visit Medical Office Building [facility] [address], [address] [place] [address] Garland Martin MD [address] [place] [address] documented as of this encounter [...] has been complete d for the patient 08/29/2024 2:13 PM EST A Body Mass Index follow-up plan has been documented for the patient 08/30/2024 7:31 AM EST documented as of this encounter Care Teams Computer Designer Relationship Specialty Start Date End Date Mayito Kilgore MD PCP - General Family Medicine 05/04/23 documented as of this encounter
--- OUTSIDE RECORDS SUMMARY | 2025-03-08 07:45 | XMS_ITS | Clinical Summary ---
Author Organization [facility] Address [address] [place] [address] Care Team Providers Care Precipitator Operator Name Role Phone Mayito Kilgore MD Primary Care Provider Mariely vailable Allergies Active Allergy Reactions Criticality Noted Date Comments Amlodipine Swelling High 02/26/2023 Empagliflozin Other - please document in the comment field Low 02/26/2023 Yeast infection Semaglutide Other - please document in the comment field Low 02/26/2023 Decreased kidney function and inflammed pancreas - hospitalized for 4 days Medications albuterol 108 (90 Base) MCG/ACT inhaler Inhale 2 puffs every 4 (four) hours if needed. 02/26/2023 Active pantoprazole (Protonix) 40 MG EC tablet Take 1 tablet (40 mg) by mouth 1 (one) time each day. 04/27/2023 Active potassium chloride CR (Klor-Con M10) 10 MEQ ER tablet Take 1 tablet (10 mEq) by mouth 1 (one) time each day. Do not crush or chew. Active Insulin Glargine (TOUJEO MAX SOLOSTAR SC) Inject 66 Units under the skin every night. Active lisinopril 20 MG tablet 06/25/2023 Active furosemide (Lasix) 40 MG tablet 07/05/2024 Active potassium chloride ER (Micro-K) 10 MEQ ER capsule 07/05/2024 Active Hospital, Clinic, or Other Facility Administered Medication Ordered Dose Route Frequency Start Date End Date Status triamcinolone acetonide (Kenalog-40) injection 40 mgIndications:Chronic pain of right knee,Primary osteoarthritis of right knee 40 mg IX Once 02/15/2025 02/15/2025 Ended lidocaine (Xylocaine) 1 % injection 2 mLIndications:Chronic pain of right knee,Primary osteoarthritis of right knee 2 mL IJ Once 02/15/2025 02/15/2025 Ended bupivacaine PF (Marcaine) 0.25 % injection 5 mgIndications:Chronic pain of right knee,Primary osteoarthritis of right knee 5 mg IJ Once 02/15/2025 02/15/2025 Ended Active Problems Problem Noted Date Diagnosed Date Severe obesity (BMI 35.0-39.9) with comorbidity 01/31/2025 Unilateral primary osteoarthritis, left knee Primary osteoarthritis of one knee, left 023 Encounters Date Type Department Care Team Description 02/16/2025 Telephone [facility] at [facility] [address] [place] [address] Piter Hogan DO HCN - Patient Message 02/15/2025 9:20 AM EDT Procedure Visit [facility] at [facility] [address] [place] [address] Piter Hogan DO Primary osteoarthritis of right knee (Primary Dx); Chronic pain of right knee 02/15/2025 Travel 01/31/2025 11:29 AM EDT - 01/31/2025 11:59 PM EDT Hospital Encounter [facility] [address], [address] [place] [address] Chronic pain of right knee Discharge Disposition: Home or Self Care 01/31/2025 10:40 AM EDT Office Visit [facility] at [facility] [address] [place] [address] Piter Hogan DO Chronic pain of right knee (Primary Dx) 01/31/2025 Travel 01/25/2025 Travel from Last 3 Months Family History Medical History Relation Name Comments Diabetes Brother Chu Fish Diabetes Father's Brother Efren Fish Cancer Sister 1 Cancer Diabetes Sister 2 Ebony Nancy Diabetes Sister 3 Deedee Villasenor Relation Name Status Comments Brother Chu Fish Father's Brother Efren Fish Sister 1 Cancer Sister 2 Ebony Nancy Sister 3 Deedee Carranzareynoldmojgan Social History Tobacco Use Types Packs/Day Years [...] 03/23/2024 How often do you attend chur or samaritan services? More than 4 times per year 03/23/2024 Do you belong to any clubs o r organizations such as rastafari groups, unions, fraternal or athletic groups, or [...] Recorded Patient Health Questionnaire-2 Score 0 01/31/2025 [facility] - Occupational [...] place to sleep or slept in a fpc (including now)? No 03/23/2024 CAGE ASSESSMENT Answer [...] drink first t davon in the morning (EYE-BATCH ATTENDANT) to steady your nerves or to get [...] PM EDT Sexual Orientation Not on file Last Filed Vital Signs Vital Sign Reading Time Taken Comments Blood Pressure 164/81 02/15/2025 9:18 AM EDT Pulse 57 02/15/2025 9:18 AM EDT Temperature 36.4 C (97.5 F) 03/23/2024 11:54 AM EDT Respiratory Rate 16 08/29/2024 2:13 PM EST Oxygen Saturation 97% 02/15/2025 9:18 AM EDT Inhaled Oxygen Concentration - - Weight 106 kg (233 lb) 02/15/2025 9:18 AM EDT Height 165.1 cm (5' 5 ) 02/15/2025 9:18 AM EDT Body Mass Index 38.77 02/15/2025 9:18 AM EDT Plan of Treatment Upcoming Encounters Date Type Department Care Team (Late st Contact Info) Description 05/21/2025 8:00 AM EDT Procedure Visit [facility] at [facility] [address] [place] [address] Piter Hogan S, DO [address] [place] [address] 09/04/2025 1:00 PM EST Office Visit Medical Office [facility] [address], [address] [place] [address] Garland Martin MD [address] [place] [address] Health Maintenance Due Date Last Done Comments [facility]-Bone Density Scan 1958 [facility]-Hepatitis C Screening 1958 [facility]-Medicare Annual Wellness (AWV) 1958 [facility]-/Child/Adol SDOH Screenings 1958 Diabetes: Dental Exam 1968 [facility]-DTaP,Tdap,and Td Vaccines (1 - Tdap) 1977 CT Colonography 2003 Colonoscopy 2003 FIT-DNA 2003 FIT 2003 FOBT 2003 Sigmoidoscopy 2003 [facility]-Colorectal Cancer Screening 2003 [facility]-Breast Cancer Screening 2008 [facility]-Zoster Vaccines (1 of 2) 2008 [facility]-RSV Vaccine: 60+ Years or (1 - Risk 60-74 years 1-dose series) 2018 [id number] Vaccine (1 - season) 2024 [facility]-Diabetes: Hemoglobin A1C 06/13/2024 03/14/2024, 05/11/2023 [facility]- SDOH Screenings 09/23/2024 [facility]-Adult SDOH Screenings 09/23/2024 03/23/2024 [facility]-Influenza Vaccine (#1) 2025 05/30/2024, [facility]-Depression Screening 01/31/2026 01/31/2025 [facility]-Pneumococcal Vaccine: 50+ Years Completed 07/20/2023 [facility]-Obesity Intervention Completed 025, 01/31/2025, 08/29/2024, Additional history exists HPV Vaccines Aged Out No longer eligi ble based on patient's age to complete this topic [facility]-HIB Vaccines Aged Out No longer e ligible based on patient's age to complete this topic [facility]-Hepatitis A Vaccines Aged Out No longer eligible based on patient's age to complete this topic [facility]-IPV Vaccines Aged Out No longer e ligible based on patient's age to complete this topic [facility]-Rotavirus Vaccines Aged Out No lo nger eligible based on patient's age to complete this topic Goals Goal Patient Goal Type Associated Problems Recent Progress Patient-Stated? Author Autogenerat ed Goal Care Plan Autogenerated Problem No Efraín Gonsalez MD Medical Devices Implanted Type Area Park Interpretive Ranger Device Identifier Shelf Expiration Date Model / Serial / Lot Cement With Tobramycin - [id number] Implanted:Qty: 1 on 03/22/2024 by Garland Martin MD at [facility] Left: Knee [employer] [id number] 06/08/2025 [id number] / / [id number] Chg Patella Gns Ii Resurf 32mm - [id number] Implanted:Qty: 1 on 03/22/2024 by Garland Martin MD at [facility] Left: Knee [id number] 08/17/2032 [id number] / / [id number] Chg Lgn Xlpe Dished Isrt Sz 3-4 11mm - [id number] Implanted:Qty: 1 on 03/22/2024 by Garland Martin MD at [facility] Left: Knee [id number] 12/14/2033 [id number] / / [id number] Chg Tibial Gns Ii Cmt Size 4 L - [id number] Implanted:Qty: 1 on 03/22/2024 by Garland Martin MD at [facility] Left: Knee [id number] 09/24/2033 [id number] / / [id number] Chg Femoral Legion Cr Oxin Sz4 - [id number] Implanted:Qty: 1 on 03/22/2024 by Garland Martin MD at [facility] Left: Knee [employer]-[id number] 12/03/2033 [id number] / / [id number] Procedures Procedure Name Priority Date/Time Associated Diagnosis Comments XR KNEE RIGHT 4+ VIEWS Routine 01/31/2025 11:41 AM EDT Chronic pain of right knee HEMOGLOBIN A1C Routine 03/14/2024 8:37 AM EDT Primary osteoarthritis of one knee, left from Last 3 Months or Most Recently Relevant to Health Maintenance Results * XR Knee Right 4+ Views [...] signing this report, I, the attending physician, attestthat I have personally reviewed the images/data for the aboveexamination(s) and agree with the final edited report. Drafted by Baljinder Fonseca MD on 01/31/2025 11:44 AM Final report signed by New Stinson MD on 01/31/2025 11:47 AM us Piter Hogan DO IMG XR PROCEDURES Final Result * (ABNORMAL) Hemoglobin A1c (03/14/2024 8:37 AM EDT) Hemoglobin A1c 7.6(H) <5.7 % 03/14/2024 2:07 PM EDT [facility] Blood Venous blood specimen / Unknown Venipuncture / Unknown 03/14/2024 8:37 AM EDT 03/14/2024 8:37 AM EDT Narrative [facility] - 03/14/2024 2:07 PM EDT HA1C Interpretive Data: Diagnosis of Diabetes: Diabetic > or = 6.5% Pre-diabetic 5.7 to 6.4% Non-diabetic < or = 5.6% Glycemic Targets for Type I and Type II Diabetics: Non- Adults <7.0% Adults <6.0% Children and Adolescents <7.5% Source: [place] [employer]. Standards of medical care in diabetes,2017. Diabetes Care.2017:40 (suppl 1):S1-S135. HbA1c assay performed by an ion-exchange chromatography method that is certified traceable to the DCCT. Garland Martin MD LAB BLOOD ORDERABLES Pati curran [facility] [address] [place] [phone] from Last 3 Months or Most Recently Relevant to Health Maintenance Additional Health Concerns Active Problems Noted Date Diagnosed Date Autogenerated Problem 11/27/2024 Insurance MEDICARE COUNT INCLUDES THE [facility] MEDICAID Advance Directives * Full Code (Latest Code Status on File) Date Activated Date Inactivated Comments 03/22/2024 11:58 AM 03/23/2024 7:22 PM Question Answer Comments Patient has decision-making capacity? Yes Care Teams Precipitator Operator Relationship Specialty Start Date End Date Mayito Kilgore MD PCP - General Family Medicine 05/04/23
--- OUTSIDE RECORDS SUMMARY | 2025-03-08 07:45 | XMS_ITS | Encounter Summary ---
Author Organization [facility] Address [address] [place] [address] Care Team Providers Care Earth Science Teacher Name Role Phone Mayito Kilgore MD Primary Care Provider Mariely vailable Reason for Visit * Reason Onset Date Comments HCN - Patient Message 02/16/2025 Encounter Details Date Type Department Care Team (Late st Contact Info) Description 02/16/2025 Telephone Physical Medicine & Rehabilitation Clinic at [facility] [address] [facility] [place] [address] Piter Hogan S, DO [address] [place] [address] HCN - Patient Message Social History Tobacco Use Types Packs/Day Years [...] often do you attend chur ch or faith services? More than 4 times per year 03/23/2024 Do you belong to any clubs o r organizations such as methodist groups, unions, fraternal or athletic groups, or [...] Recorded Patient Health Questionnaire-2 Score 0 01/31/2025 [facility] Occupational Stress Questionnaire Answer [...] place to sleep or slept in a alf (including now)? No 03/23/2024 CAGE ASSESSMENT Answer [...] drink first t davon in the morning (EYE-CAMPAIGN MARKETING SPECIALIST) to steady your nerves or to get [...] on file documented as of this encounter Miscellaneous Notes * Telephone Encounter - Nallely Alvarado - 02/16/2025 4:30 PM EDT Clinical Concern/Question Reason for Call: Edison patient calling, she is needing a return call from clinical staff regarding continued/increased pain after her last injection. Patient is needing to be advised on what else shecan do Best contact number: [phone] (mobile) Optimal time of day to reach caller: ANYTIME Additional comments/information from caller: None Note: Please do not reply to this message. Follow-up communication and further actions as a result of this message need to be communicated with the patient directly, if the patient is not active onMyChart. If the patient is active on MyChart, they will receive notification of the communication/outcome via MyChart. documented in this encounter Plan of Treatment Upcoming Encounters Date Type Department Care Team (Late st Contact Info) Description 05/21/2025 8:00 AM EDT Procedure Visit Physical Medicine & Rehabilitation Clinic at [facility] [address] [address] Piter Hogan S, DO [address] [place] [address] 09/04/2025 1:00 PM EST Office Visit Medical Office Building [facility] [address] [place] [address] Garland Martin MD [address] [place] [address] documented as of this encounter [...] documented as of this encounter Care Teams Earth Science Teacher Relationship Specialty Start Date End Date Mayito Kilgore MD PCP - General Family Medicine 05/04/23 documented as of this encounter
--- OUTSIDE RECORDS SUMMARY | 2025-03-08 07:45 | XMS_ITS | Patient Health Record ---
Author Organization [facility] [address] [facility] [address] Care Team Providers Care Check Pilot Name Role Phone Outside Provider Primary Care Provider Unavailab le Allergies Allergen (clinical drug ingredient) Drug/Non Drug Allergy documented on EMR Reaction Allergy Type Onset Date Status amlodipine Norvasc swelling Drug Allergy Active empagliflozin Jardiance Unknown Drug Allergy Act ciera semaglutide Ozempic Unknown Drug Allergy Activ e Reason For Referral No Information Medications Medication SIG (Take, Route, Frequency, Duration) Notes Start Date End Date Status Phentermine HCl 37.5 MG 1 capsule Orally Once a day Active metFORMIN HCl 500 MG 1 tablet with a vipul l Orally Once a day Active Lisinopril 20 MG 1 tablet Orally Once a day Active Pantoprazole Sodium 40 MG 1 tablet Orally Once a day Active Vitamin D 25 MCG (1000 UT) 1 tablet Orally Once a day Active Levemir FlexTouch 100 UNIT/ML as directed Subcutaneous Act ciera glipiZIDE 10 MG 1 tablet 30 minutes before breakfast Orally Once a day Active linaGLIPtin 5 MG 1 tablet Orally Once a day Active linaCLOtide 145 MCG 1 capsule at least 3 0 minutes before the first meal of the day on an empty stomach Orally Once a day Active Atorvastatin Calcium 40 MG 1 tablet Orally Once a day Active Mesalamine 1.2 GM 2 tablets with a viplu l Orally Once a day Active Social History Tobacco Use: Social History Observation Description Date Details (start date - stop date) Former Smoker NA - NA Sex Assigned At : Social History Observation Description Sex Assigned At Female Tobacco Use/Smoking Question Answer Notes Are you a former smoker How long has it been since you last smoked? > 10 years Plan Of Treatment No Information Medical (General) History Medical History History ICD Code Diabetes hypertension Acid Refux Cholesterol Denies Any changes in medical history fr om last visit Surgical History Surgery Date(Month/Year) Hysterectomy 1989 Cyst removed on wrist 1991 Rotor Cuff Repair - Left 2009 Rotor Cuff Repair - Right 2011
--- NOTE | 2025-03-08 08:00 | MM_ITS ---
PROCEDURE INFORMATION: Exam: MG Bilateral Screening 3D Mammography Exam date and time: 03/08/2025 8:05 AM Age: 64 years old Clinical indication: Screening mammogram TECHNIQUE: Imaging protocol: Bilateral Screening tomosynthesis and 2D mammography including computer-aided detection (CAD) when performed. COMPARISON: 1. MG MM DIG SCREENING MAMM BI W/CAD 02/29/2024 12:45 PM 2. MG MM DIG SCREENING MAMM BI W/CAD 02/19/2023 2:57 PM 3. MG DMDXUAVL DIG MAMM-DX UNI ADD VIEWS-LT 05/08/2015 1:49 PM 4. MG DMSB DIG MAMM-SCREEN JUSTIN 04/25/2015 10:38 AM FINDINGS: MAMMOGRAPHY: Breast composition: There are scattered areas of fibroglandular density. Mass: None. Architectural distortion: No new or suspicious architectural distortion. Calcifications: No new or suspicious calcifications are present Asymmetric density: No new or suspicious asymmetric density is present Skin thickening: None. Axillary adenopathy: None. IMPRESSION: No mammographic evidence of malignancy. Recommend annual screening mammography unless otherwise clinically indicated. ASSESSMENT: BI-RADS category 1: Negative.
== END 2025-03-08 23:59 | disposition home or self-care (01) ==
LOC: RAD 07:43
PROVIDERS: PCP Family Medicine; Visit Provider Family Medicine
DX: Z12.31 Encounter for screening mammogram for malignant neoplasm of breast (principal); R92.321 Mammographic fibroglandular density, right breast; R92.322 Mammographic fibroglandular density, left breast
CPT/HCPCS: 77063; 77067

== ENCOUNTER 2025-04-19 09:40 | Outpatient (CLI) | payer MEDICARE, MEDICAID, SELFPAY ==
--- OUTSIDE RECORDS SUMMARY | 2025-04-20 09:21 | XMS_ITS | Encounter Summary ---
Author Organization [facility] Address [address] [place] [address] Care Team Providers Care Culture Manager Name Role Phone Mayito Kilgore MD Primary Care Provider Mariely vailable Reason for Visit * Reason Onset Date Comments HCN - Patient Message 02/16/2025 Encounter Details Date Type Department Care Team (Late st Contact Info) Description 02/16/2025 Telephone Physical Medicine & Rehabilitation Clinic at [facility] [address] [facility] [address] [place] [address] Piter Hogan S, DO [address] [place] [address] HCN - Patient Message Social [...] often do you attend chur ch or episcopal services? More than 4 times per year 03/23/2024 Do you belong to any clubs o r organizations such as pentecostal groups, unions, fraternal or athletic groups, or [...] Recorded Patient Health Questionnaire-2 Score 0 01/31/2025 [facility] Occupational Stress Questionnaire Answer [...] place to sleep or slept in a penitentiary (including now)? No 03/23/2024 CAGE ASSESSMENT Answer [...] drink first t davon in the morning (EYE-SUPERINTENDENT COMMISSARY) to steady your nerves or to get [...] what else shecan do Best contact number: [phone] (mobile) Optimal time of day to reach [...] Care Team (Late st Contact Info) Description 05/23/2025 1:30 PM EDT Procedure Visit [facility] & Rehabilitation Clinic at [facility] [address] [place] [address] Piter Hogan S, DO [address] [place] [address] 09/04/2025 1:00 PM EST Office Visit Medical Office Building [facility] [address], [address] [place] [address] Garland Martin MD [address] [place] [address] documented as of this encounter [...] documented as of this encounter Care Teams Culture Manager Relationship Specialty Start Date End Date Mayito Kilgore MD PCP - General Family Medicine 05/04/23 documented as of this encounter
--- OUTSIDE RECORDS SUMMARY | 2025-04-20 09:21 | XMS_ITS | Patient Health Record ---
Author Organization [facility] Address [address] [facility] [place] [address] Care Team Providers Care Ladies' Locker Room Attendant Name Role Phone Outside Provider Primary Care [...] Mesalamine 1.2 GM 2 tablets with a vipul l Orally Once a day Active Social [...]
--- OUTSIDE RECORDS SUMMARY | 2025-04-20 09:21 | XMS_ITS | Clinical Summary ---
Author Organization [facility] Address [address] [place] [address] Care Team Providers Care Parts Counter Associate Name Role Phone Mayito Kilgore MD Primary [...] (Micro-K) 10 MEQ ER capsule 07/05/2024 Active Active Problems Problem Noted Date Diagnosed Date Severe obesity (BMI 35.0-39.9) with comorbidity 01/31/2025 Unilateral primary osteoarthritis, left knee Primary osteoarthritis of one knee, left 023 Encounters Date Type Department Care Team Description 02/16/2025 Telephone Physical Medicine & Rehabilitation Clinic at [facility] [address] [place] [address] Piter Hogan DO HCN - Patient Message 02/15/2025 9:20 AM EDT Procedure Visit [facility] at [facility] [address] [place] [address] Piter Hogan DO Primary osteoarthritis of right knee (Primary Dx); Chronic pain of right knee 02/15/2025 Travel 01/31/2025 11:29 AM EDT - 01/31/2025 11:59 PM EDT Hospital Encounter [facility] [address], [address] [place] [address] Chronic pain of right knee Discharge Disposition: Home or Self Care 01/31/2025 10:40 AM EDT Office Visit [facility] at [facility] [address] [place] [address] Piter Hogan DO Chronic pain of right knee (Primary Dx) 01/31/2025 Travel 01/25/2025 Travel from Last 3 Months Family History Medical History Relation Name Comments Diabetes Brother Chu Fish Diabetes Father's Brother Efren Fish Cancer Sister 1 Cancer Diabetes Sister 2 Ebony Cruz Diabetes Sister 3 Deedee Villasenor Relation Name Status Comments Brother Chu Fish Father's Brother Efren Fish Sister 1 Cancer Sister 2 Ebony Nancy Sister 3 Deedee Villasenor Social History Tobacco Use Types Packs/Day Years [...] week 03/23/2024 How often do you attend [facility] or hinduism services? More than 4 times per year 03/23/2024 Do you belong to any clubs o r organizations such as zoroastrianism groups, unions, fraternal or athletic groups, or [...] Recorded Patient Health Questionnaire-2 Score 0 01/31/2025 [facility] - Occupational Stress Questionnaire Answer Date [...] place to sleep or slept in a jail (including now)? No 03/23/2024 CAGE ASSESSMENT Answer [...] drink first t davon in the morning (EYE-CARDIO CLINICIAN) to steady your nerves or to get [...] Description 05/23/2025 1:30 PM EDT Procedure Visit [facility] [address] [place] [address] Piter Hogan S, DO [address] [place] [address] 09/04/2025 1:00 PM EST Office Visit Medical Office [facility] [address], [address] [place] [address] Garland Martin MD [address] [place] [address] Health Maintenance Due Date Last Done Comments [facility]-Bone Density Scan 1958 [facility]-Hepatitis C Screening 1958 [facility]-Medicare Annual Wellness (AWV) 1958 [facility]-/Child/Adol SDOH Screenings 1958 [facility]- SDOH Screenings 1976 [facility]-Adult SDOH Screenings 1976 [facility]-DTaP,Tdap,and Td Vaccines (1 - Tdap) 1977 CT Colonography 2003 Colonoscopy 2003 FIT-DNA 2003 FIT 2003 FOBT 2003 Sigmoidoscopy 2003 [facility]-Colorectal Cancer Screening 2003 [facility]-Breast Cancer Screening 2008 [facility]-Zoster Vaccines (1 of 2) 2008 [id number]-[id number]-32 Vaccine ( - 2023- season) 2025 [facility]-Influenza Vaccine (#1) 2025 05/30/2024, [facility]-Depression Screening 01/31/2026 01/31/2025 [facility]-RSV Vaccine: 60+ Years or (1 - 1-dose 75+ series) 2033 [facility]-Pneumococcal Vaccine: 50+ Years Completed 07/20/2023 [facility]-Diabetes: Hemoglobin A1C Discontinued 03/14/2024, 05/11/2023 [facility]-Obesity Intervention Completed 025, 01/31/2025, 08/29/2024, Additional [...] Gonsalez MD Medical Devices Implanted Type Area Maintenance And Engineering Manager Device Identifier Shelf Expiration Date Model / Serial / Lot Cement With Tobramycin - [id number] Implanted:Qty: 1 on 03/22/2024 by Garland Martin MD at [facility] Left: Knee [employer] [id number] 06/08/2025 [id number] / / [id number] Chg Patella Gns Ii Resurf 32mm - [id number] Implanted:Qty: 1 on 03/22/2024 by Garland Martin MD at [facility] Left: Knee [id number] 08/17/2032 [id number] / / [id number] Chg Lgn Xlpe Dished Isrt Sz 3-4 11mm - [id number] Implanted:Qty: 1 on 03/22/2024 by Garland Martin MD at [facility] Left: Knee [id number] 12/14/2033 [id number] / / [id number] Chg Tibial Gns Ii Cmt Size 4 L - [id number] Implanted:Qty: 1 on 03/22/2024 by Garland Martin MD at [facility] Left: Knee [id number] 09/24/2033 [id number] / / [id number] Chg Femoral Legion Cr Oxin Sz4 - [id number] Implanted:Qty: 1 on 03/22/2024 by Garland Martin MD at [facility] Left: Knee [id number] 12/03/2033 [id number] / / [id number] Procedures Procedure Name Priority Date/Time Associated Diagnosis [...] Edison DO IMG XR PROCEDURES Final Result * [...] Adults <6.0% Children and Adolescents <7.5% Source: [place] [employer]. Standards of medical care in diabetes,2017. Diabetes Care.2017:40 (suppl 1):S1-S135. HbA1c assay performed by an ion-exchange chromatography method that is certified traceable to the DCCT. us Garland Martin MD LAB BLOOD ORDERABLES Pati curran Result [facility] [address] [place] [address] from Last 3 Months or Most Recently Relevant to Health Maintenance Additional Health Concerns Active Problems Noted Date Diagnosed Date Autogenerated Problem 11/27/2024 Insurance MEDICARE [facility] MEDICAID Advance Directives * Full Code (Latest Code Status on File) Date Activated Date Inactivated Comments 03/22/2024 11:58 AM 03/23/2024 7:22 PM Question Answer Comments Patient has decision-making capacity? Yes Care Teams Parts Counter Associate Relationship Specialty Start Date End Date Mayito Kilgore MD PCP - General Family Medicine 05/04/23
== END 2025-04-19 23:59 | disposition home or self-care (01) ==
LOC: LAB.DROPOF 04-20 09:19
PROVIDERS: PCP Family Medicine; Visit Provider Family Medicine
DX: E11.9 Type 2 diabetes mellitus without complications (principal); R39.9 Unspecified symptoms and signs involving the genitourinary system
CPT/HCPCS: 82043; 82570; 87086; 87088; 87186

== ENCOUNTER 2025-08-07 06:53 | Outpatient (CLI) | payer MEDICARE, MEDICAID, SELFPAY ==
--- NOTE | 2025-08-07 | CA_ITS ---
APPROVED REPORT Exam: Pharmacologic Technologist: Tenisha Pete Stress Nurse: Tyson Yang Ht: 5 ft 5 in Wt: 226 lbs BSA: 2.08 m2 Indications: Chest Pain Medical History Medications: Albuterol, Amoxicillian, Furosemide, Insulin, Lisinopril, Metformin ER, Oxybutynin Chloride ER, Pantoprazole, Potassium Chloride ER, Pseudoephedrine HCI ER. Stress Test Details Test: Lexiscan Reason for pharmacologic stress test: physical limitation. HR Resting HR: 75 bpm Max Heart Rate (APMHR): 153.079792 bpm Max HR Achieved: 88 bpm Target HR (85% APMHR): 130.697880 bpm % of APMHR: 57.52 Recovery HR: 84 bpm BP Resting BP: 148.0/90.0 mmHg Max BP: 164.0/85.0 mmHg Recovery BP: 162.0/81.0 mmHg ECG Resting ECG: NSR, Q waves Inferiorly. Stress ECG Conclusion Symptoms: None. Arrhythmias/Ectopy: No significant arrhythmias (Rare PVC). ST-T Changes: <1.5mm ST Segment changes. Conclusion: Non-Diagnostic Lexiscsan Stress. Electronically signed by : Renuka Adamson MD 08/07/2025 18:43:09
--- OUTSIDE RECORDS SUMMARY | 2025-08-07 06:56 | XMS_ITS | Patient Health Record ---
Author Organization [facility] [address] [facility] [address] Care Team Providers Care Route Service Manager Name Role Phone Outside Provider Primary Care [...] End Date Status Phentermine HCl 37.5 MG Capsule 1 capsule Orally Once a day Active metFORMIN HCl 500 MG Tablet 1 tablet with a meal Orally Once a day Active Lisinopril 20 MG Tablet 1 tablet Orally Once a day Active Pantoprazole Sodium 40 MG Tablet Delayed Release 1 tablet Orally Once a day Active Vitamin D 25 MCG (1000 UT) Tablet 1 tablet Orally Once a day A ctive Levemir FlexTouch 100 UNIT/ML Solution Pen-injector as directed Subcutaneous Act ciera glipiZIDE 10 MG Tablet 1 tablet 30 minut es before breakfast Orally Once a day Active linaGLIPtin 5 MG Tablet 1 tablet Orally Once a day Active linaCLOtide 145 MCG Capsule 1 capsule at least 30 minutes before the first meal of the day on an empty stomach Orally Once a day Active Atorvastatin Calcium 40 MG Tablet 1 tablet Orally Once a day A ctive Mesalamine 1.2 GM Tablet Delayed Release 2 tablets with a meal Orally Once a day Active Social History Tobacco Use: Social History Observation Description Date Details (start date - stop date) Former Smoker NA - NA Sex Assigned At : Social History Observation Description Sex Assigned At Female Social History * Tobacco Use: Social Info Question Answer Notes Tobacco Use/Smoking Are you a former smoker How long has it been since you last smoked? > 10 years * Medical Visit Screening: Social Info Question Answer Notes Drug and Alcohol Screening: Caffeine use: Yes Current alcohol use: No Current illicit drug use: No Plan Of Treatment No Information Medical (General) History Medical History History ICD Code Diabetes hypertension Acid Refux Cholesterol Denies Any changes in medical history fr om last visit Surgical History Surgery Date(Month/Year) Hysterectomy 1989 Cyst removed on wrist 1991 Rotor Cuff Repair - Left 2008 Rotor Cuff Repair - Right 2011
--- OUTSIDE RECORDS SUMMARY | 2025-08-07 06:56 | XMS_ITS | Encounter Summary ---
Author Organization [facility] Address [address] [place] [address] Care Team Providers Care Audit Clerks Supervisor Name Role Phone Mayito Kilgore MD Primary Care Provider Mariely vailable Reason for Visit * Reason Onset Date Comments HCN - Patient Message 07/25/2025 HCN Status Update Call #1 07/25/2025 Encounter Details Date Type Department Care Team (Late st Contact Info) Description 07/25/2025 Telephone Physical Medicine & Rehabilitation Clinic at [facility] [address] [facility] [place] [address] Piter Hogan, DO [address] [place] [address] HCN - Patient Message; HCN Status Update Call #1 Social History Tobacco Use Types Packs/Day Years [...] week 03/23/2024 How often do you attend [facility] or yazidi services? More than 4 times per year 03/23/2024 Do you belong to any clubs o r organizations such as mosque groups, unions, fraternal or athletic groups, or [...] Date Recorded Patient Health Questionnaire-2 Score 0 05/23/2025 [facility] - Occupational Stress Questionnaire Answer Date Recorded [...] drink first t davon in the morning (EYE-MANAGER INTENSIVE CARE UNIT) to steady your nerves or to get rid of a hangover? 0 03/22/2024 CAGE Questionnaire Score 0 024 Utilities Answer Date Recorded In the past 12 months has th e [employer], gas, oil, or water company threatened to shut off services in your home? No 03/23/2024 Comments No Sex and Gender Information Value Date Recorded Sex Assigned at Female 03/07/2024 6:00 PM EDT Legal Sex Female 8:50 PM EDT Gender Identity Female 03/07/2024 6:00 PM EDT Sexual Orientation Not on file documented as of this encounter Miscellaneous Notes * Telephone Encounter - Jen Izquierdo RN - 07/30/2025 10:25 AM EST Spoke with pt and relayed message from Dr. Hogan. * Telephone Encounter - Jen Izquierdo RN - 07/26/2025 4:21 PM EST Spoke with pt and she is having worsening knee pain. She had a STRINGER injection on June 02 but this injection has not helped with her pain, the pain has gotten worse. She has tried using ice and alternating between Ibuprofen and Tylenol but nothing has been working. She has also tried using a brace for her knee but that made the pain worse. Her right knee pain sits normally at a 10/10 and she wilian nues to have burning pain and the occasional popping in her knee. This is also causing her issues with walking. She has a f/u in August but wants to know if there is anything else she can do. * Telephone Encounter - Radha Hancock - 07/26/2025 2:17 PM EST Status Update Call #1 1st call regarding the status of the initial request. Best contact number: [phone] (home) Optimal time of day to reach caller: ANYTIME Additional comments/information from caller: Patient was returning a missed call from 1:58p and would like a call back at next convenience Note: Please do not reply to this message. Follow-up communication and further actions as a result of this message need to be communicated with the patient directly, if the patient is not active onMyChart. If the patient is active on MyChart, they will receive notification of the communication/outcome via [employer]. * Telephone Encounter - Nayeli Rosado - 07/25/2025 12:20 PM EST Clinical Concern/Question Reason for Call: Edison pt is requesting call back regarding right knee pain Best contact number: [phone] (home) Optimal time of day to reach caller: [...] Care Team (Late st Contact Info) Description 08/23/2025 8:00 AM EST Office Visit [facility] [address] [address] Piter Hogan, DO [address] [place] [address] 09/04/2025 1:00 PM EST Office Visit Medical Office Building [facility] [address], [address] [place] [address] Garland Martin MD [address] [place] [address] documented as of this encounter Visit Diagnoses Not on filedocumented in this encounter Additional Health Concerns Assessment Noted Time A fall risk assessment has been complete d for the patient 05/23/2025 1:27 PM EDT A Body Mass Index follow-up plan has been documented for the patient 05/24/2025 1:39 PM EDT documented as of this encounter Care Teams Audit Clerks Supervisor Relationship Specialty Start Date End Date Mayito Kilgore MD PCP - General Family Medicine 05/04/23 documented as of this encounter
--- OUTSIDE RECORDS SUMMARY | 2025-08-07 06:56 | XMS_ITS | Encounter Summary ---
Author Organization [facility] Address [address] [place] [address] Care Team Providers Care Structural Engineering Drafting Officer Name Role Phone Mayito Kilgore MD Primary Care Provider Mariely vailable Reason for Referral * Other Medical (Routine) - Pending Review Specialty Diagnoses / Procedures Referred By Contac t Referred To Contact Physical Medicine and Rehabilitation Diagnoses Chronic pain of right knee Primary osteoarthritis of right knee Procedures Injection - Large Joint Piter Hogan DO [address] [place] [address] Phone: tel: fax: Referral ID Status Reason Start Date Expiration Date V isits Requested Visits Authorized [id number] Pending Review 07/27/2025 01/26/2027 1 1 Encounter Details Date Type Department Care Team (Late st Contact Info) Description 07/27/2025 Orders Only [facility] [address] [facility] [place] [address] Piter Hogan DO [address] [place] [address] Chronic pain of right knee (Primary Dx); Primary osteoarthritis of right knee Social History Tobacco Use [...] week 03/23/2024 How often do you attend [facility] or advent services? More than 4 times per year [...] Recorded Patient Health Questionnaire-2 Score 0 05/23/2025 [facility] - Occupational Stress [...] place to sleep or slept in a fci (including now)? No 03/23/2024 CAGE ASSESSMENT Answer [...] drink first t davon in the morning (EYE-STONE BANKER) to steady your nerves or to get [...] [facility] [address] [place] [place] [address] Piter Hogan S, DO [address] [place] [address] 09/04/2025 1:00 PM EST Office Visit Medical Office [facility] [address], [address] [place] [address] Garland Martin MD [address] [place] [address] Scheduled Orders Name Type Priority Associated Diagnoses Orde r Schedule Injection - Large Joint Procedures Routine Chronic pain of right knee Primary osteoarthritis of right knee Expected: 08/23/2025, Expires: 01/28/2027 documented as of this encounter Visit Diagnoses Diagnosis Chronic pain of right knee- Primary Primary osteoarthritis of right knee documented in this encounter Additional Health Concerns Assessment Noted Time A fall risk assessment has been complete d for the patient 05/23/2025 1:27 PM EDT A Body Mass Index follow-up plan has been documented for the patient 05/24/2025 1:39 PM EDT documented as of this encounter Care Teams Structural Engineering Drafting Officer Relationship Specialty Start Date End Date Mayito Kilgore MD PCP - General Family Medicine 05/04/23 documented as of this encounter
--- OUTSIDE RECORDS SUMMARY | 2025-08-07 06:56 | XMS_ITS | Clinical Summary ---
Author Organization [facility] Address [address] [place] [address] Care Team Providers Care Fruit Washer Name Role Phone Mayito Kilgore MD Primary [...] ER (Micro-K) 10 MEQ ER capsule 07/05/2024 Acti ve Droplet Pen Gifford 31G X 5 MM misc Inject 1 each as directed daily. 04/30/2025 Active metFORMIN XR (Glucophage-XR) 500 MG 24 hr tablet Take 1 tablet by mouth 1 time each day with dinner. 03/18/2025 Active Toualbero Max SoloStar 300 UNIT/ML injection pen Inject 5,400 Units under the skin nightly. 04/23/2025 Active lisinopril 40 MG tablet Take 1 tablet by mouth daily. 04/23/2025 Active Active Problems Problem Noted Date Diagnosed Date Severe obesity (BMI 35.0-39.9) with comorbidity 01/31/2025 Unilateral primary osteoarthritis, left knee Primary osteoarthritis of one knee, left 023 Encounters Date Type Department Care Team Description 07/27/2025 Orders Only Physical Medicine & Rehabilitation Clinic at [facility] [address] [place] [address] Piter Hogan DO Chronic pain of right knee (Primary Dx); Primary osteoarthritis of right knee 07/25/2025 Telephone Physical Medicine & Rehabilitation Clinic at [facility] [address] [place] [address] Piter Hogan DO HCN - Patient Message; HCN Status Update Call #1 05/23/2025 1:30 PM EDT Procedure Visit [facility] Rehabilitation Clinic at [facility] [address] [place] [address] Piter Hogan DO Primary osteoarthritis of right knee (Primary Dx); Chronic pain of right knee 05/23/2025 Travel 05/16/2025 Travel from Last 3 Months Immunizations Immunization Administration Dates Next Due Influenza, High-dose, Split Virus, Trivalent, Injectable, preservative free 05/30/2024 Influenza, high-dose, quadrivalent 07/08/2023 Pneumococcal 20-agustina Conj Vaccine 07/20/2023 Family History Medical History Relation Name Comments [...] week 03/23/2024 How often do you attend [facility] or sabianist services? More than 4 times per year [...] Recorded Patient Health Questionnaire-2 Score 0 05/23/2025 [facility] - Occupational Stress Questionnaire [...] place to sleep or slept in a longterm (including now)? No 03/23/2024 CAGE ASSESSMENT Answer [...] drink first t davon in the morning (EYE-DOCUMENT PREPARER MICROFILMING) to steady your nerves or to get rid of a hangover? 0 03/22/2024 CAGE Questionnaire Score 0 024 Utilities Answer Date Recorded In the past 12 months has th e electric, gas, oil, or water [employer] threatened to shut off services in your home? No 03/23/2024 Comments No Sex and Gender Information Value Date Recorded Sex Assigned at Female 03/07/2024 6:00 PM EDT Legal Sex Female 8:50 PM EDT Gender Identity Female 03/07/2024 6:00 PM EDT Sexual Orientation Not on file Last Filed Vital Signs Vital Sign Reading Time Taken Comments Blood Pressure 141/88 05/23/2025 1:21 PM EDT Pulse 88 05/23/2025 1:21 PM EDT Temperature 36.4 C (97.5 F) 03/23/2024 11:54 AM EDT Respiratory Rate 16 08/29/2024 2:13 PM EST Oxygen Saturation 95% 05/23/2025 1:21 PM EDT Inhaled Oxygen Concentration - - Weight 106 kg (233 lb) 05/23/2025 1:21 PM EDT Height 162.6 cm (5' 4 ) 05/23/2025 1:21 PM EDT Body Mass Index 39.99 05/23/2025 1:21 PM EDT Plan of Treatment Upcoming Encounters Date Type Department Care Team (Late st Contact Info) Description 08/23/2025 8:00 AM EST Office Visit [facility] [address] [place] [address] Piter Hogan S, DO [address] [place] [address] 09/04/2025 1:00 PM EST Office Visit Medical Office Building [facility] [address], [address] [place] [address] Garland Martin MD [address] [place] [address] Health Maintenance Due Date Last [...] 2008 [facility]-Zoster Vaccines (1 of 2) 2008 [id number] Vaccine (1 - season) 2025 [facility]-Influenza Vaccine (#1) 2025 05/30/2024, [facility]-Depression Screening 05/23/2026 05/23/2025 [facility]-RSV Vaccine: 60+ Years or (1 - 1-dose 75+ series) 2033 [facility]-Pneumococcal Vaccine: 50+ Years Completed 07/20/2023 [facility]-Diabetes: Hemoglobin A1C Discontinued 03/14/2024, 05/11/2023 [facility]-Obesity Intervention Completed 025, 02/15/2025, 01/31/2025, Additional history exists HPV Vaccines (No Doses Required) Completed [facility]-HIB Vaccines Aged Out No longer e [...] on patient's age to complete this topic Medical Devices Implanted Type Area Train Brake Operator Device Identifier Shelf Expiration Date Model / Serial / Lot Cement With Tobramycin - [id number] Implanted:Qty: 1 on 03/22/2024 by Garland Martin MD at [facility] Left: Knee [employer] [id number] 06/08/2025 [id number] / / [id number] Chg Patella Gns Ii Resurf 32mm - [id number] Implanted:Qty: 1 on 03/22/2024 by Garland Martin MD at [facility] Left: Knee [id number] 08/17/2032 [id number] / / [id number] Chg Lgn Xlpe Dished Isrt Sz 3-4 11mm - [id number] Implanted:Qty: 1 on 03/22/2024 by Garland Martin MD at [facility] Left: Knee [id number] 12/14/2033 [id number] / / [id number] Chg Tibial Gns Ii Cmt Size 4 L - [id number] Implanted:Qty: 1 on 03/22/2024 by Garland Martin MD at [facility] Left: Knee [id number] 09/24/2033 [id number] / / [id number] Chg Femoral Legion Cr Oxin Sz4 - [id number] Implanted:Qty: 1 on 03/22/2024 by Garland Martin MD at [facility] Left: Knee [id number] 12/03/2033 [id number] / / [id number] Procedures Procedure Name Priority Date/Time Associated Diagnosis Comments HEMOGLOBIN A1C Routine 03/14/2024 8:37 AM EDT Primary osteoarthritis of one knee, left from Last 3 Months or Most Recently Relevant to Health Maintenance Results * (ABNORMAL) Hemoglobin A1c (03/14/2024 8:37 AM [...] Adults <6.0% Children and Adolescents <7.5% Source: [place] [employer]. Standards of medical care in diabetes,2017. Diabetes Care.2017:40 (suppl 1):S1-S135. HbA1c assay performed by an ion-exchange chromatography method that is certified traceable to the DCCT. us Garland Martin MD LAB BLOOD ORDERABLES Pati curran Result [facility] [address] [place] [address] from Last 3 Months or Most Recently Relevant to Health Maintenance Insurance MEDICARE [facility] MEDICAID Advance Directives * Full Code (Latest Code Status on File) Date Activated Date Inactivated Comments 03/22/2024 11:58 AM 03/23/2024 7:22 PM Question Answer Comments Patient has decision-making capacity? Yes Care Teams Fruit Washer Relationship Specialty Start Date End Date Mayito Kilgore MD PCP - General Family Medicine 05/04/23
--- NOTE | 2025-08-07 07:30 | NM_ITS ---
APPROVED REPORT Exam: Nuclear Stress Test Indication: Abnormal EKG, Chest pain, SOB, Fatigue, HTN, DM Patient Location: Outpatient Stress Tech: Tenisha Naylor ME Tech:Sherron Sandoval, ARRT, RT (R)(N) Ht: 5 ft 4 in Wt: 233 lbs Bra Size: 42C HR: 75 bpm BP: 148/90 mmHg BSA: 2.09 m2 TID: 1.24 BMI: 39.9 History: Abnormal EKG, Chest pain, SOB, Fatigue, HTN, DM Procedure: Patient received 0.4 mg of intravenous Lexiscan, resting heart rate 75 bpm, resting blood pressure 148/90 mmHg, with Lexiscan maximum heart rate achieved was 92 bpm which is % of the maximum predicted heart rate and blood pressure was 164/85 mmHg. With Lexiscan, patient denied any complaint of chest pain. Cardiac Stress and Resting SPECT Images: Cardiac Stress and Resting SPECT images were obtained using technetium 99m Myoview 30.7 mCi stress and 10.97 mCi at rest. Resting and stress imaging in supine and prone positions demonstrate no evidence of fixed or reversible perfusion defects. There is increase in transient ischemic dilatation ratio (TID 1.24), which may be suggestive of possible multivessel disease or balanced ischemia. Gated imaging demonstrates mild reduction in global LV systolic function. LVEF is calculated at 49%. Conclusion: No evidence of fixed or reversible perfusion defects. There is increase in transient ischemic dilatation ratio (TID 1.24), which may be suggestive of possible multivessel disease or balanced ischemia. Gated imaging demonstrates mild reduction in global LV systolic function. LVEF is calculated at 49%. Electronically signed by : Renuka Adamson MD 08/07/2025 18:14:23
[2025-08-07 07:36] LABS: Hematocrit 37.1 % (37.0-47.0); Hemoglobin 12.0 g/dL (12.2-16.2); Immature Granulocytes % 0.3 %; Mean Corpuscular HGB Conc 32.3 g/dL (31.8-35.4); Mean Corpuscular Hemoglobin 28.9 pg (27.0-31.2); Mean Corpuscular Volume 89.4 fl (81-99); Nucleated Red Blood Cells % 0 %; Platelet Count 498 K/mm3 (142-424); Red Blood Count 4.15 M/mm3 (4.20-5.40); Red Cell Distribution Width-SD 44.2 fL; White Blood Count 11.6 K/mm3 (4.8-10.8)
[2025-08-07] MEDS: SODIUM CHLORIDE 0.9% 10ML SYR (RAD ONLY) 10 ML IV ×2 (09:04)
[2025-08-07] MEDS: ISOTOPE MYOVIEW (PER STUDY) 1 DOSE IV (09:04)
[2025-08-07 09:08] LABS: Albumin Level 4.6 g/dl (3.5-5.0); Chloride 97 mmol/L (98-107); Sodium 139 mmol/L (136-145)
[2025-08-07 09:09] LABS: Potassium 4.5 mmoL/L (3.5-5.1)
[2025-08-07 09:11] LABS: Alanine Aminotransferase 34 U/L (12-78); Anion Gap 14.5 mEq/L (5-15); Aspartate Amino Transferase 38 U/L (14-36); Bilirubin,Unconjugated 0.4 mg/dL (0.0-1.1); Blood Urea Nitrogen 38 mg/dl (7-17); Carbon Dioxide 32 mmol/L (22.0-30.0); Cholesterol 263 mg/dl (140-200); Creatinine,Serum 1.70 mg/dl (0.52-1.04); Estimated Glomerular Filt Rate 30 ml/min (>60); GFR (African American) 36 ML/MIN (>60); Total Protein,Serum 8.4 g/dl (6.3-8.2); Triglycerides 252 mg/dl (30-150)
[2025-08-07 09:12] LABS: Alkaline Phosphatase 94 U/L (38-126); Bilirubin,Direct 0.0 mg/dl (0.0-0.4); Bilirubin,Indirect 0.4 mg/dL (0.0-0.9); Bilirubin,Total 0.4 mg/dl (0.2-1.3); Calcium 10.4 mg/dl (8.4-10.2); Glucose 134 mg/dl (74-100); HDL Cholesterol 49 mg/dl (40-60); Magnesium 2.1 mg/dl (1.6-2.3)
[2025-08-07 09:20] LABS: NT Pro Brain Natriuretic Pep. 49.3 pg/mL (0-125)
[2025-08-07 09:25] LABS: Free T4 (Free Thyroxine) 1.11 ng/dl (0.78-2.19)
[2025-08-07 09:42] LABS: Thyroid Stimulating Hormone 2.12 uIU/mL (0.465-4.68)
--- NOTE | 2025-08-07 11:00 | CA_ITS ---
APPROVED REPORT EXAM: Comprehensive 2D, Doppler, and color-flow Echocardiogram Medical Collections: Damari Gamez RT(R) Ht: 5 ft 5 in Wt: 233lbs BSA: 2.11 BP: 170/73 mmHg Indications: chest pain, hypertension, DM, shortness of breath, abn EKG, hyperlipidemia 2D Dimensions EF AP4 50.80 % GL Strain -14.2 % M-Mode Dimensions RVDd 3.02 cm (0.9-2.6) LA Diam 3.75 cm (1.9-4.0) LVDd 5.11 cm (3.5-5.7) LVDs 3.34 cm (3.5-5.7) IVSd 0.97 cm (0.6-1.1) PWd 0.84 cm (0.6-1.1) EF (Teich) 63.50% FS 34.60% EDV (Teich) 124.40 mL ESV (Teich) 45.40 mL LV Diastology E Decel Time 210 (160-240 msec) E/A Ratio 0.6 Mitral Valve MV E Max Francis. 57.0 (40-130 cm/s) MV A Velocity 98.0 (40-130 cm/s) E/A Ratio 0.59 MV PHT 62.0 ms Left Ventricle The left ventricle is normal size. Left ventricular systolic function is normal. The left ventricular ejection fraction is within the normal range. There is increased left ventricular wall thickness. There is normal LV segmental wall motion. Transmitral Doppler flow pattern suggests impaired LV relaxation. LVEF is 60%. Right Ventricle The right ventricle is normal size. The right ventricular systolic function is normal. Atria The left atrium size is normal. The right atrium size is normal. There is no color Doppler evidence of interatrial shunt. Aortic Valve The aortic valve opens well. There is no hemodynamically significant aortic valvular stenosis. No aortic regurgitation is present. Mitral Valve The mitral valve is normal in structure. No evidence of mitral valve stenosis. Trace mitral regurgitation is present. Tricuspid Valve The tricuspid valve leaflets are thin and pliable. Trace tricuspid regurgitation. There is insufficient TR jet to estimate RVSP. Pulmonic Valve The pulmonary valve is grossly normal in structure. Trace pulmonic valve regurgitation is present. Great Vessels The aortic root is normal in size. IVC is normal in size and collapses >50% with inspiration. Pericardium There is no pericardial effusion. Other Information Study Quality: Fair Conclusion Normal biventricular systolic function. No significant valvular stenosis or regurgitation. Electronically signed by : Renuka Adamson MD 08/08/2025 13:04:27
== END 2025-08-07 23:59 | disposition home or self-care (01) ==
LOC: RAD 06:54
PROVIDERS: PCP Family Medicine; Visit Provider Internal Medicine
DX: E78.49 Other hyperlipidemia (principal); R94.39 Abnormal result of other cardiovascular function study; R07.89 Other chest pain; R06.02 Shortness of breath; R94.31 Abnormal electrocardiogram [ECG] [EKG]; R53.83 Other fatigue; I10 Essential (primary) hypertension; R60.9 Edema, unspecified; E11.9 Type 2 diabetes mellitus without complications
CPT/HCPCS: 36415; 78452; 80048; 80061; 80076; 83735; 83880; 84439; 84443; 85025; 93017; 93018; 93306; A9502; J2785